=== PATIENT | female | born 1955 | race Caucasian/White ===

== ENCOUNTER 2017-03-08 12:28 | Emergency (ER) | payer OTHER ==
[2017-03-08 13:16] VITALS: BP 103/54
--- NOTE | 2017-03-08 13:26 | UC ---
Lower Extremity/Ankle HPI - HPI Summary HPI Summary: complaint of left leg pain that worsened approx 2 months ago 6 months ago she fell of a ramp backwards and thats when she started having leg pain in 10/2016 PCP found a lump in her left groin- lump has resolved for the past 2 months the pain starts in upper thigh and radiates into her knee left knee pain for 2 months aching pain - worse at night because she sleeps on her left side and weight of right leg pressing on left leg increases pain pain is worse when she is ambulating nothing lessenes the pain never had folloup appt with Dr Santos - History of Current Complaint Chief Complaint: UCLowerExtremity Stated Complaint: LEFT LEG PAIN Time Seen by Provider: 03/08/17 13:15 Hx Obtained From: Patient - Allergies/Home Medications Allergies/Adverse Reactions: Allergies Allergy/AdvReac Type Severity Reaction Status Date / Time Aspirin [ASA] Allergy Intermediate GI Upset Verified 03/08/17 13:07 Ibuprofen [From Motrin] Allergy Intermediate GI Upset Verified 03/08/17 13:07 Sulfa Drugs Allergy Intermediate GI Upset Verified 03/08/17 13:07 Camphor [From Vicks Vaporub] Allergy "LUNGS Verified 03/08/17 13:07 TIGHTEN UP" Eucalyptus Oil Allergy "LUNGS Verified 03/08/17 13:07 [From Vicks Vaporub] TIGHTEN UP" Latex Allergy red and Verified 03/08/17 13:07 itchy Menthol [From Vicks Vaporub] Allergy "LUNGS Verified 03/08/17 13:07 TIGHTEN UP" adhesive tape Allergy Intermediate Rash Uncoded 03/08/17 13:07 Mints Allergy Coughing Uncoded 03/08/17 13:07 Home Medications: Home Medications Acetaminophen [Acetaminophen Extra Stren] 1,500 mg PO BEDTIME 03/08/17 [History Confirmed 03/08/17] Aspirin EC Low Dose* [Ecotrin EC Low Dose 81 MG*] 81 mg PO DAILY 03/08/17 [ History Confirmed 03/08/17] Pantoprazole TAB (NF) [Protonix TAB (NF)] 40 mg PO DAILY 03/08/17 [History Confirmed 03/08/17] metFORMIN* [Glucophage 850 MG TAB *] 850 mg PO 0800,1200,1700 03/08/17 [History Confirmed 03/08/17] PMH/Surg Hx/FS Hx/Imm Hx Previously Healthy: Yes Endocrine History Of: Reports: Diabetes Cardiovascular History Of: Reports: Cardiac Disorders - [place] 2012, Stents, Pacemaker, Hypertension, Pacemaker/ICD, Myocardial Infarction Respiratory History Of: Reports: Asthma Denies: COPD GI/ History Of: Reports: Kidney Stones Cancer History Of: Denies: Breast Cancer - Surgical History Surgical History: Yes Surgery Procedure, Year, and Place: X 3SHOCKWAVE LITHOTRIPSY- CMCCARDIAC STENTS- CMCOophorectomyCARDIAC STENTS AND PACEMAKER INSERTION, MAY 2013 - Family History Known Family History: Negative: Cardiac Disease, Hypertension, Diabetes - Social History Occupation: Disabled Lives: With Family Alcohol Use: None Substance Use Type: None Smoking Status (MU): Former Smoker Type: Cigarettes Amount Used/How Often: 1 PPD Length of Time of Smoking/Using Tobacco: 44 Years When Did the Patient Quit Smoking/Using Tobacco: 05/2013 Household Exposure Type: Cigarettes - Immunization History Most Recent Influenza Vaccination: 2011 Most Recent Tetanus Shot: unk Most Recent Pneumonia Vaccination: none Review of Systems Constitutional: Negative Skin: Negative Eyes: Negative ENT: Negative Respiratory: Negative Cardiovascular: Negative Gastrointestinal: Negative Genitourinary: Negative Motor: Negative Neurovascular: Negative Musculoskeletal: Other: - left leg pain Neurological: Negative Psychological: Negative All Other Systems Reviewed And Are Negative: Yes Physical Exam Triage Information Reviewed: Yes Appearance: No Pain Distress, Well-Nourished Vital Signs: Initial Vital Signs Temp 98.8 F 03/08/17 13:00 Pulse 70 03/08/17 13:00 Resp 16 03/08/17 13:00 BP 103/54 03/08/17 13:00 Pulse Ox 98 03/08/17 13:00 Vital Signs Reviewed: Yes Eyes: Positive: Conjunctiva Clear ENT: Positive: Pharynx normal, TMs normal Neck: Positive: No Lymphadenopathy Respiratory: Positive: Lungs clear, Normal breath sounds, No respiratory distress Cardiovascular: Positive: RRR, No Murmur, Pulses Normal, Brisk Capillary Refill Abdomen Description: Positive: Nontender, Soft Bowel Sounds: Positive: Present Musculoskeletal: Positive: Other: - LLE-knee- No bony deformities, inflammation , or tenderness in bony prominences or soft tissue. No bakers cyst. Full ROM ( extension/flexion). Limited internal and external rotation. Medial, lateral meniscus; anterior, posterior cruciate ligaments ,medial & lateral collateral ligaments intact as assessed with negative Anterior/Posterior Drawer signs, Lachmans, and McMurrays Tests. No effusion, bulge/balloon sign. left thigh - slight tenderness in adductor longus- no edema on left thigh Neurological: Positive: Alert Psychological Exam: Normal Skin Exam: Normal Lower Extremity Course/Dx - Course Course Of Treatment: exam completed. physcial exam reveals muscle tenderness in adductor longus. no edema in LLE- pulses 2 +. x-ray shows osteoarthritis with small effusion- will start NSAIDs refer to ortho and PCP followup - Differential Dx/Diagnosis Differential Diagnosis/HQI/PQRI: Contusion, Fracture (Closed), Sprain, Strain Provider Diagnoses: LLE muscle sprain, osteoarthritis left knee, small effusion left knee Discharge - Discharge Plan Condition: Stable Disposition: HOME Prescriptions: Naproxen Sodium [Naproxen Sodium 220 mg cap] 220 mg PO BID #20 cap Patient Education Materials: Osteoarthritis (ED), Musculoskeletal Pain (ED) Referrals: Rosa Peacock MD [Primary Care Provider] - Additional Instructions: Increase fluids and rest Take naproxen for pain, rest leg Please review your discharge instructions. If your symptoms do not improve please call your primary care provider or return to urgent care.
--- NOTE | 2017-03-08 14:00 | RAD ---
INDICATION: TECHNIQUE: 2 views of the left knee were obtained. FINDINGS: The bones are in normal alignment. No fracture is seen. There is a small joint effusion present. There is mild to moderate osteoarthritic change in the medial and patellofemoral compartments. IMPRESSION: 1. SMALL JOINT EFFUSION. 2. MILD TO MODERATE OSTEOARTHRITIC CHANGE.
--- NOTE | 2017-03-08 14:01 | RAD ---
INDICATION: Left femur pain. TECHNIQUE: 2 views of the left femur were obtained. FINDINGS: The bones are normal alignment. No fracture is seen. IMPRESSION: NO EVIDENCE FOR FRACTURE.
== END 2017-03-08 14:31 | disposition home or self-care (01) ==
LOC: UCCORT 12:28
DX: S83.92XA Sprain of unspecified site of left knee, initial encounter (principal); X58.XXXA Exposure to other specified factors, initial encounter; Y93.9 Activity, unspecified; Y92.9 Unspecified place or not applicable; M17.12 Unilateral primary osteoarthritis, left knee; M25.462 Effusion, left knee; E11.9 Type 2 diabetes mellitus without complications; Z79.84 Long term (current) use of oral hypoglycemic drugs; I25.2 Old myocardial infarction; I10 Essential (primary) hypertension; Z95.5 Presence of coronary angioplasty implant and graft; Z95.0 Presence of cardiac pacemaker; J45.909 Unspecified asthma, uncomplicated; Z87.442 Personal history of urinary calculi; Z88.6 Allergy status to analgesic agent; Z88.2 Allergy status to sulfonamides; Z87.891 Personal history of nicotine dependence
CPT/HCPCS: 99212; G0463

== ENCOUNTER 2017-09-18 14:47 | Emergency (ER) | payer OTHER ==
[2017-09-18 15:10] VITALS: BP 123/61
[2017-09-18] MEDS ORDERED: Sulfamethox/Trimethoprim DS 800/160* TAB PO ONE (15:35)
[2017-09-18] MEDS ORDERED: Cephalexin CAP* 500 MG PO ONE (15:38)
--- NOTE | 2017-09-18 15:48 | UC ---
Hand/Wrist HPI - HPI Summary HPI Summary: 62 yo female with right index pain/redness/swelling that started 3 days ago started near lateral nail bed no with fusiform swelling of finger extending to dorsum of hand no f/c she is a diabetic - History Of Current Complaint Chief Complaint: UCUpperExtremity Stated Complaint: FINGER INJURY Time Seen by Provider: 09/18/17 15:08 Hx Obtained From: Patient Onset/Duration: Gradual Onset, Lasting Days Severity Initially: Mild Severity Currently: Severe Pain Intensity: 8 - if she bumps it Character Of Pain: Throbbing Aggravating Factor(s): Movement Alleviating Factor(s): Rest Associated Signs And Symptoms: Positive: Swelling, Redness Related History: Dominant Hand Right - Allergies/Home Medications Allergies/Adverse Reactions: Allergies Allergy/AdvReac Type Severity Reaction Status Date / Time Aspirin [ASA] Allergy Intermediate GI Upset Verified 09/18/17 14:57 Ibuprofen [From Motrin] Allergy Intermediate GI Upset Verified 09/18/17 14:57 Sulfa Drugs Allergy Intermediate GI Upset Verified 09/18/17 14:57 Camphor [From Vicks Vaporub] Allergy "LUNGS Verified 09/18/17 14:57 TIGHTEN UP" Eucalyptus Oil Allergy "LUNGS Verified 09/18/17 14:57 [From Vicks Vaporub] TIGHTEN UP" Latex Allergy red and Verified 09/18/17 14:57 itchy Menthol [From Vicks Vaporub] Allergy "LUNGS Verified 09/18/17 14:57 TIGHTEN UP" adhesive tape Allergy Intermediate Rash Uncoded 09/18/17 14:57 Mints Allergy Coughing Uncoded 09/18/17 14:57 PMH/Surg Hx/FS Hx/Imm Hx Previously Healthy: Yes Endocrine History: Diabetes, Dyslipidemia Cardiovascular History: Cardiac Disease, Hypertension, Myocardial Infarction - Surgical History Surgical History: Yes Surgery Procedure, Year, and Place: X 3SHOCKWAVE LITHOTRIPSY- CMCCARDIAC STENTS- CMCOophorectomyCARDIAC STENTS AND PACEMAKER INSERTION, MAY 2013 - Family History Known Family History: Negative: Cardiac Disease, Hypertension, Diabetes - Social History Alcohol Use: None Substance Use Type: Prescribed Smoking Status (MU): Former Smoker Type: Cigarettes Amount Used/How Often: 1 PPD Length of Time of Smoking/Using Tobacco: 44 Years When Did the Patient Quit Smoking/Using Tobacco: 05/2013 Household Exposure Type: Cigarettes - Immunization History Most Recent Influenza Vaccination: 2011 Most Recent Tetanus Shot: unk Most Recent Pneumonia Vaccination: none Review of Systems Constitutional: Negative Skin: Negative Eyes: Negative ENT: Negative Respiratory: Negative Cardiovascular: Negative Gastrointestinal: Negative Genitourinary: Negative Motor: Negative Neurovascular: Negative Musculoskeletal: Negative Neurological: Negative Psychological: Negative Is Patient Immunocompromised?: No All Other Systems Reviewed And Are Negative: Yes Physical Exam Triage Information Reviewed: Yes Appearance: Well-Appearing, No Pain Distress, Well-Nourished Vital Signs: Initial Vital Signs Temp 98.1 F 09/18/17 14:53 Pulse 74 09/18/17 14:53 Resp 12 09/18/17 14:53 BP 123/61 09/18/17 14:53 Pulse Ox 99 09/18/17 14:53 Eyes: Positive: Conjunctiva Clear ENT: Negative: Nasal congestion, Nasal drainage, Trismus, Muffled voice, Hoarse voice Neck: Positive: Supple Respiratory: Positive: Lungs clear, Normal breath sounds, No respiratory distress, No accessory muscle use Cardiovascular: Positive: RRR, No Murmur Musculoskeletal: Positive: Other: - see image Neurological: Positive: Alert, Muscle Tone Normal Skin Exam: Other - see image Procedures - Procedure Summary Procedure Summary: I&D right index finger paronychia TO sterile prep incised with 18 gu needle leyla pus expresses culture obtained tolerated procedure well - Incision and Drainage Site: right index finger Instrument(s): Needle Hand/Wrist Course/Dx - Differential Dx/Diagnosis Provider Diagnoses: right index finger paronychia. right index finger cellulitis Discharge - Discharge Plan Condition: Stable Disposition: HOME Prescriptions: Cephalexin CAP* [Keflex CAP*] 500 mg PO QID #28 cap Sulfamethox/Trimethoprim DS* [Bactrim DS 800/160 TAB*] 1 tab PO BID #14 tab Patient Education Materials: Paronychia (ED), Cellulitis (ED) Referrals: Rosa Peacock MD [Primary Care Provider] - 3 Days Additional Instructions: to er for new or worsening symptoms if the bactrim DS upsets your stomach take with food a culture is pending we will try to eliminate one of the antibiotics once your culture results return Images Hands: 1 - red/swollen/parodawnaa
--- NOTE | 2017-09-18 21:55 | UC ---
Progress - Progress Note Progress Note: Received report of S. aureus positive sample on wound culture from today. MRSA negative. She was prescribed cephalexin and bactrim. Treatment is appropriate pending sensitivities.
--- NOTE | 2017-09-20 14:13 | UC ---
Progress - Progress Note Progress Note: sensitive to bactrim and cephalexin. no changes [facility] 09/20/17 [id number]
== END 2017-09-18 16:05 | disposition home or self-care (01) ==
LOC: UCEAST 14:47
DX: L03.011 Cellulitis of right finger (principal); B95.61 Methicillin susceptible Staphylococcus aureus infection as the cause of diseases classified elsewhere; E11.9 Type 2 diabetes mellitus without complications; E78.5 Hyperlipidemia, unspecified; I25.2 Old myocardial infarction; I10 Essential (primary) hypertension; Z95.5 Presence of coronary angioplasty implant and graft; Z95.0 Presence of cardiac pacemaker; Z88.2 Allergy status to sulfonamides; Z88.6 Allergy status to analgesic agent; Z91.040 Latex allergy status; Z87.891 Personal history of nicotine dependence
CPT/HCPCS: 10060; 87070; 87077; 87186; 87205; 87640; 87641; 99212; A9270-GY; G0463

== ENCOUNTER 2017-09-27 11:23 | Emergency (ER) | payer OTHER ==
--- OUTSIDE RECORDS SUMMARY | 2017-09-27 11:58 | XMS REPORT ---
:1955 External Reference #:[id number] Author Organization [facility] Address [address] [facility] [place] [address] Phone [phone] Care Team Providers Name Role Phone Rosa Peacock MD Care Team Information Supervisor Road Administrator Unavailable Payers Type Date Identification Numbers Payment Provider Subscriber Commercial Effective: Policy Number: [id number] [facility] Mila Delgado 2014 PayID: [id number] [place] [address] Problems Date Description Provider Status Onset: 08/07/2014 Myopia Rosa Peacock M.D. Active Onset: 08/07/2014 Atopic dermatitis Rosa Peacock M.D. Active Onset: 08/07/2014 Psoriasis Rosa Peacock M.D. Active Onset: 08/07/2014 Asthma without status asthmaticus Rosa Peacock M.D. Active Onset: 08/07/2014 Allergic rhinitis Rosa Peacock M.D. Active Onset: 08/07/2014 Benign essential hypertension Rosa Peacock M.D. Active Onset: 08/07/2014 Cardiac pacemaker in situ Rosa Peacock M.D. Active Onset: 08/07/2014 Sinus node dysfunction Rosa Peacock M.D. Active Onset: 08/07/2014 Chronic obstructive lung disease Rosa Peacock M.D. Active Onset: 08/07/2014 Indigestion Rosa Peacock M.D. Active Onset: 08/07/2014 Peptic reflux disease Rosa Peacock M.D. Active Onset: 08/07/2014 Low back pain Rosa Peacock M.D. Active Onset: 08/07/2014 Osteoarthritis Rosa Peacock M.D. Active Onset: 08/07/2014 Type II diabetes mellitus uncontrolled Rosa Peacock M.D. Active Onset: 08/07/2014 Mixed hyperlipidemia Rosa Peacock M.D. Active Onset: 08/07/2014 Old myocardial infarction Rosa Peacock M.D. Active Onset: 08/07/2014 Coronary arteriosclerosis Rosa Peacock M.D. Active Family History Date Family Member(s) Problem(s) Comments Father due to he passed when pt () was 18 months old Father Alcoholism Mother due to a tage 69 () Mother due to Diabetes () First Son mental disorders various d/t brain injury First Son 37 Second Son dyslexia Second Son 33 Second Son lazy eye Third Son strong mood swings Third Son 30 First Brother Age is Unknown First Brother Cancer First Brother due to Cancer () Second Brother due to passed () Second Brother Age is Unknown Second Brother due to Diabetes () Second Brother due to kidney failure () Third Brother due to passed as infant () - " blue baby" heart failure Third Brother Age is Unknown Fourth Brother Age is Unknown Fourth Brother Diabetes Fifth Brother Age is Unknown Fifth Brother Diabetes Social History Type Date Description Comments Marital Status Legal Status: ETOH Use Denies alcohol use Smoking Patient is a former smoker Daily Caffeine Consumes on average 2 cups of regular coffee per day Allergies, Adverse Reactions, Alerts Date Description Reaction Status Severity Comments 08/07/2014 Latex active 08/07/2014 Aspirin active 08/07/2014 Sulfa Antibiotics active 08/07/2014 Nuts active 08/07/2014 Vicksvapor Rub active 08/07/2014 Mornix active 06/03/2017 Lisinopril active 06/03/2017 Bandaids Urticaria active Medications Medication Date Status Form Strength Qnty SIG Indications Ordering Provider Sindhu Hx Tablets 750mg 10tabs 1 by L03.011 Ayush, 017 - mouth Ahmad M., every M.D. 017 day Loratadine Active Tablets 10mg 30tabs Take 1 J30.9 Ayush, 017 Tablet Ahmad M., By Mouth M.D. Every Day as Needed Glipizide Active Tablets 10mg 90tabs Take 1 E11.65 Ayush, 017 Tablet Ahmad M., By Mouth M.D. 3 Times A Day Tramadol HCL Active Tablets 50mg 90tabs 1 by M25.562 Ayush, 017 mouth Ahmad M., three M.D. times a day Naproxen Active Tablets 250mg 60tabs Take 1 Ayush, 017 Tablet Ahmad M., By Mouth M.D. Twice A Day Advair Diskus Active Aerosol 250-50mcg/D 60units inhale 1 Ayush, 015 ose puff by Ahmad M., mouth M.D. twice daily Atorvastatin 0 Active Tablets 20mg E78.2 Unknown Calcium 000 I25.10 I25.2 Furosemide Active Tablets 20mg Take 1 Tablet By Mouth I25.10 Unknown Every Day R60.0 Clopidogrel Bisulfate Active Tablets 75mg Take 1 Tablet By I25.2 Unknown Mouth Every Day I25.10 Proair HFA Active Aerosol 108(90Base) 2Mdi use 2 J45.909 Ayush, mcg/Act puffs one Ahmad M., to four M.D. times daily J44.9 Diovan Active Tablets 80mg Take 1 Tablet By Mouth I25.10 Unknown Every Day Nitrostat Active Tablets Sub 0.4mg Place 1 Tablet Under I25.10 Unknown The Tongue as Directed I25.2 Metformin HCL Active Tablets 850mg 90tabs take 1 E11.65 Ayush, tablet by Ahmad M., mouth 3 M.D. times a day Pantoprazole Active Tablets DR 40mg 30tabs take 1 Ayush, Sodium tablet by Rosa Tompkins., mouth M.D. every day Gabapentin Active Tablets 600mg 90tabs take 1 M54.5 Ayush, tablet by Ahmaregina M., mouth 3 M.D. times a day M15.9 Metoprolol Active Tablets ER 25mg 1 by I25.10 Unknown Succinate ER 24HR mouth every day Aspirin Adult Low Active Tablets DR 81mg 1 by Unknown Dose mouth every day Aldactone Active Tablets 25mg 1/2 tab Unknown qd Januvia 07/02/2017 - Hx Tablets 100mg Samples [address] [facility] [place], 07/13/2017 by mouth Joemaregina Tompkins., every M.D. day Clarithromycin 11/07/2014 - Hx Tablets 500mg 28tabs [address] [facility] [place], 11/17/2014 mouth Joemaregina Ruiz, twice a M.D. day Glipizide - Hx Tablets 10mg 250.02 Unknown 08/15/2014 Pantoprazole - Hx Tablets DR 40mg Take 1 Unknown Sodium 08/07/2014 Tablet By Mouth Every Day Metoprolol - Hx Tablets ER 50mg Take 1 I25.10 Unknown Succinate ER 06/03/2017 24HR Tablet By Mouth Every Day M25.562 Loratadine - Hx Tablets 10mg take 1 tablet 477.8 [facility] every M., M.D. day Valsartan - Hx Tablets 80mg 414.01 Rosemarie, 08/07/2014 MD Kendall 412 401.1 Meloxicam - Hx Tablets 7.5mg Take One Tablet Unknown 08/07/2014 By Mouth Daily Ranitidine HCL - Hx Tablets 300mg [place], 08/07/2014 MD Dimple Cephalexin - Hx Capsules 500mg Unknown 08/07/2014 Amiodarone HCL - Hx Tablets 200mg Take 1 Tablet Unknown 08/07/2014 By Mouth Twice A Day For 7 Days, Then Decrease To 1 Tabl Metformin HCL - Hx Tablets 1000mg Unknown 08/07/2014 [facility] [employer] [facility] - Hx Tablets 150mg [place], Maximum Strength 08/07/2014 MD Dimple [facility] Loratadine - Hx Tablets 10mg Take 1 Tablet Unknown 08/07/2014 By Mouth Every Day Losartan - Hx Tablets 25mg take 1 tablet AyushPatricia erazod Potassium 08/07/2014 by mouth every M., M.D. day [facility] [employer] [facility] - Hx Tablets 150mg [place], Maximum Strength 06/27/2015 MD Dimple Medications Administered in Office Medication Date Status Form Strength Qnty SIG Indications Ordering Provider Intradermal Administered Injection Roma Segundo 016 Juliano FOOD SCIENTIST Immunizations CPT Code Status Date Vaccine Lot # [id number] Given 08/03/2017 Flu Vaccine [id number] Given 08/13/2016 Pneumovax [id number] Given 08/09/2015 Flu Vaccine [id number] Given 08/07/2014 Flu Vaccine [id number] Vital Signs Date Vital Result Comment 09/25/2017 BP Systolic 120 mmHg BP Diastolic 68 mmHg Height 66 inches 5'6" Weight 193.00 lb BMI (Body Mass Index) 31.1 kg/m2 Heart Rate 71 /min Respiratory Rate 16 /min 09/07/2017 BP Systolic 122 mmHg BP Diastolic 66 mmHg Height 66 inches 5'6" Weight 197.00 lb BMI (Body Mass Index) 31.8 kg/m2 Heart Rate 78 /min Respiratory Rate 16 /min 08/03/2017 BP Systolic 130 mmHg BP Diastolic 68 mmHg Weight 197.00 lb Heart Rate 77 /min Respiratory Rate 16 /min 07/01/2017 BP Systolic 110 mmHg BP Diastolic 62 mmHg Height 66 inches 5'6" Weight 195.00 lb BMI (Body Mass Index) 31.5 kg/m2 Heart Rate 63 /min Respiratory Rate 16 /min 06/15/2017 BP Systolic 110 mmHg BP Diastolic 72 mmHg Height 66 inches 5'6" Weight 194.00 lb BMI (Body Mass Index) 31.3 kg/m2 Heart Rate 62 /min Respiratory Rate 18 /min 05/28/2017 BP Systolic 124 mmHg BP Diastolic 62 mmHg Height 66 inches 5'6" Weight 196.00 lb BMI (Body Mass Index) 31.6 kg/m2 Heart Rate 72 /min Respiratory Rate 16 /min 08/13/2016 BP Systolic 126 mmHg BP Diastolic 74 mmHg Height 66 inches 5'6" Weight 209.00 lb BMI (Body Mass Index) 33.7 kg/m2 Heart Rate 68 /min Respiratory Rate 18 /min 03/10/2016 BP Systolic 120 mmHg BP Diastolic 62 mmHg Height 66 inches 5'6" Weight 222.00 lb BMI (Body Mass Index) 35.8 kg/m2 Heart Rate 84 /min Respiratory Rate 18 /min 02/13/2016 BP Systolic 119 mmHg BP Diastolic 76 mmHg Height 66 inches 5'6" Weight 225.00 lb BMI (Body Mass Index) 36.3 kg/m2 Heart Rate 75 /min Respiratory Rate 18 /min 11/15/2015 BP Systolic 122 mmHg BP Diastolic 70 mmHg Height 66 inches 5'6" Weight 226.00 lb BMI (Body Mass Index) 36.5 kg/m2 Heart Rate 71 /min Body Temperature 96.1 F Respiratory Rate 18 /min 10/23/2015 BP Systolic 140 mmHg BP Diastolic 77 mmHg Height 66 inches 5'6" Weight 228.00 lb BMI (Body Mass Index) 36.8 kg/m2 Heart Rate 80 /min Respiratory Rate 18 /min 09/25/2015 BP Systolic 123 mmHg BP Diastolic 78 mmHg Height 66 inches 5'6" Weight 227.00 lb BMI (Body Mass Index) 36.6 kg/m2 Heart Rate 63 /min Body Temperature 97.0 F Respiratory Rate 18 /min 08/09/2015 BP Systolic 122 mmHg BP Diastolic 76 mmHg Height 66 inches 5'6" Weight 222.00 lb BMI (Body Mass Index) 35.8 kg/m2 Heart Rate 67 /min Respiratory Rate 18 /min 07/09/2015 BP Systolic 11 mmHg BP Diastolic 75 mmHg Height 66 inches 5'6" Weight 215.00 lb BMI (Body Mass Index) 34.7 kg/m2 Heart Rate 65 /min Respiratory Rate 16 /min 06/27/2015 BP Systolic 125 mmHg BP Diastolic 78 mmHg Height 66 inches 5'6" Weight 211.00 lb BMI (Body Mass Index) 34.1 kg/m2 Heart Rate 61 /min Respiratory Rate 15 /min 05/04/2015 BP Systolic 105 mmHg BP Diastolic 64 mmHg Height 66 inches 5'6" Weight 217.00 lb BMI (Body Mass Index) 35.0 kg/m2 Heart Rate 61 /min Respiratory Rate 16 /min 12/19/2014 BP Systolic 106 mmHg BP Diastolic 66 mmHg Height 66 inches 5'6" Weight 220.00 lb BMI (Body Mass Index) 35.5 kg/m2 Heart Rate 62 /min Respiratory Rate 15 /min 11/24/2014 BP Systolic 132 mmHg BP Diastolic 74 mmHg Height 66 inches 5'6" Weight 220.00 lb BMI (Body Mass Index) 35.5 kg/m2 Heart Rate 62 /min Respiratory Rate 15 /min 11/07/2014 BP Systolic 123 mmHg BP Diastolic 73 mmHg Height 66 inches 5'6" Weight 222.00 lb BMI (Body Mass Index) 35.8 kg/m2 Heart Rate 62 /min Body Temperature 97.4 F Respiratory Rate 15 /min 09/26/2014 BP Systolic 144 mmHg BP Diastolic 81 mmHg Height 66 inches 5'6" Weight 227.00 lb BMI (Body Mass Index) 36.6 kg/m2 Heart Rate 60 /min Respiratory Rate 18 /min 08/15/2014 BP Systolic 128 mmHg BP Diastolic 64 mmHg Height 66 inches 5'6" Weight 221.00 lb BMI (Body Mass Index) 35.7 kg/m2 Heart Rate 61 /min Respiratory Rate 18 /min 08/08/2014 BP Systolic 127 mmHg BP Diastolic 66 mmHg Height 66 inches 5'6" Weight 220.00 lb BMI (Body Mass Index) 35.5 kg/m2 Heart Rate 67 /min Respiratory Rate 18 /min 08/07/2014 BP Systolic 138 mmHg BP Diastolic 72 mmHg Height 66 inches 5'6" Weight 220.00 lb BMI (Body Mass Index) 35.5 kg/m2 Heart Rate 60 /min Body Temperature 96.4 F Respiratory Rate 18 /min Results Test Date Test Result H/L Range Note Laboratory test finding 09/18/2017 Wound SEE RESULT BELOW 1, 2 Culture/Sensi MRSA/S. aureus Ssti PCR SEE RESULT BELOW 1, 3 CBC Auto Diff 07/01/2017 White Blood Count 6.5 10^3/uL 3.5-10.8 Red Blood Count 4.87 10^6/uL 4.0-5.4 Hemoglobin 15.1 g/dL 12.0-16.0 Hematocrit 44 % 35-47 Mean Corpuscular Volume 90 fL 80-97 Mean Corpuscular Hemoglobin 31 pg 27-31 Mean Corpuscular HGB Conc 34 g/dL 31-36 Red Cell Distribution Width 13 % 10.5-15 Platelet Count 125 10^3/uL Low 150-450 Mean Platelet Volume 11 um3 High 7.4-10.4 Abs Neutrophils 4.0 10^3/uL 1.5-7.7 Abs Lymphocytes 1.9 10^3/uL 1.0-4.8 Abs Monocytes 0.4 10^3/uL 0-0.8 Abs Eosinophils 0.2 10^3/uL 0-0.6 Abs Basophils 0 10^3/uL 0-0.2 Abs Nucleated RBC 0 10^3/uL Granulocyte % 61.6 % 38-83 Lymphocyte % 29.0 % 25-47 Monocyte % 5.6 % 1-9 Eosinophil % 3.1 % 0-6 Basophil % 0.7 % 0-2 Nucleated Red Blood Cells % 0.1 Comp Metabolic Panel 07/01/2017 Sodium 136 mmol/L 133-145 Potassium 4.6 mmol/L 3.5-5.0 Chloride 99 mmol/L Low 101-111 Co2 Carbon Dioxide 29 mmol/L 22-32 Anion Gap 8 mmol/L 2-11 Glucose 207 mg/dL High 70-100 Blood Urea Nitrogen 26 mg/dL High 6-24 Creatinine 0.93 mg/dL 0.51-0.95 BUN/Creatinine Ratio 28.0 High 8-20 Calcium 9.5 mg/dL 8.6-10.3 Total Protein 6.6 g/dL 6.4-8.9 Albumin 4.1 g/dL 3.2-5.2 Globulin 2.5 g/dL 2-4 Albumin/Globulin Ratio 1.6 1-3 Total Bilirubin 0.80 mg/dL 0.2-1.0 Alkaline Phosphatase 82 U/L 34-104 Alt 6 U/L Low 7-52 Ast 12 U/L Low 13-39 Egfr Non- 61.5 >60 Egfr 79.1 >60 4 CKMB 07/01/2017 CKMB ng/mL 2.0 ng/mL 0.6-6.3 Lipid Profile (Trig/Chol/HDL) 07/01/2017 Triglycerides 153 mg/dL 5 Cholesterol 128 mg/dL 6 HDL Cholesterol 48.0 mg/dL 7 LDL Cholesterol 49 mg/dL 8 Laboratory test 07/01/2017 Hemoglobin A1c 10.0 % High Less than 6.0 9 finding (Glyco HGB) Urine Microalbumin 07/01/2017 Urine Creatinine 71.34 mg/dL Random Ur Microalbumin (mg/L) < 15.0 mg/L Urine Microalbumin/Creatinine TNP ug/mg <31 10 Laboratory test finding 07/01/2017 TSH (Thyroid Stim 2.83 mcIU/mL 0.34- 5.60 11 Horm) Iron & Iron Binding 07/01/2017 Iron 165 g/dL 50-212 Capacity Unsaturated Iron Binding 163 g/dL Total Iron Binding Capacity 328 g/dL 250-450 % Iron Saturation 50 % 15-55 Laboratory test finding 11/15/2015 Magnesium 1.5 mg/dL Low 1.9-2.7 TSH (Thyroid Stim Horm) 2.73 ?IU/mL 0.34-5.60 Free T4 (Free Thyroxine) 1.10 ng/mL 0.61-1.12 Urine Microalbumin Random 11/15/2015 Ur Microalbumin (mg/L) 10.0 mg/L Urine Creatinine 115.43 mg/dL Urine Microalbumin/Creatinine 8.6 ug/mg <31 Laboratory test finding 11/15/2015 Uric Acid 5.6 mg/dL 2.3-6.6 Hemoglobin A1c (Glyco HGB) 10.5 % High Less than 6.0 12 Vitamin D Total 25(Oh) 21.2 ng/mL Low 30-50 Lipid Profile (Trig/Chol/HDL) 11/15/2015 Triglycerides 114 mg/dL 13 Cholesterol 117 mg/dL 14 HDL Cholesterol 52.9 mg/dL 15 LDL Cholesterol 41 mg/dL 16 Laboratory test finding 11/15/2015 CRP High Sensitivity 7.73 mg/L 17 Comp Metabolic Panel 11/15/2015 Sodium 134 mmol/L 133-145 Potassium 4.3 mmol/L 3.5-5.0 Chloride 95 mmol/L Low 101-111 Co2 Carbon Dioxide 27 mmol/L 22-32 Anion Gap 12 mmol/L High 2-11 Glucose 307 mg/dL High 70-100 Blood Urea Nitrogen 19 mg/dL 6-24 Creatinine 0.95 mg/dL 0.51-0.95 BUN/Creatinine Ratio 20.0 8-20 Calcium 9.4 mg/dL 8.6-10.3 Total Protein 6.9 g/dL 6.4-8.9 Albumin 4.6 g/dL 3.2-5.2 Globulin 2.3 g/dL 2-4 Albumin/Globulin Ratio 2.0 1-3 Total Bilirubin 1.10 mg/dL High 0.2-1.0 Alkaline Phosphatase 89 U/L 34-104 Alt 10 U/L 7-52 Ast 19 U/L 13-39 Egfr Non- 60.4 >60 Egfr 77.7 >60 18 CBC Auto Diff 11/15/2015 White Blood Count 7.2 10^3/uL 3.5-10.8 Red Blood Count 5.01 10^6/uL 4.0-5.4 Hemoglobin 15.8 g/dL 12.0-16.0 Hematocrit 48 % High 35-47 Mean Corpuscular Volume 95 fL 80-97 Mean Corpuscular Hemoglobin 32 pg High 27-31 Mean Corpuscular HGB Conc 33 g/dL 31-36 Red Cell Distribution Width 14 % 10.5-15 Platelet Count 127 10^3/uL Low 150-450 Mean Platelet Volume 11 um3 High 7.4-10.4 Abs Neutrophils 5.3 10^3/uL 1.5-7.7 Abs Lymphocytes 1.4 10^3/uL 1.0-4.8 Abs Monocytes 0.4 10^3/uL 0-0.8 Abs Eosinophils 0.1 10^3/uL 0-0.6 Abs Basophils 0 10^3/uL 0-0.2 Abs Nucleated RBC 0.01 10^3/uL Granulocyte % 73.1 % 38-83 Lymphocyte % 19.5 % Low 25-47 Monocyte % 5.6 % 1-9 Eosinophil % 1.2 % 0-6 Basophil % 0.6 % 0-2 Nucleated Red Blood Cells % 0.1 Laboratory test finding 07/09/2015 Thyroid Stim Hormone 2.37 uIU/mL 0.36- 3.74 Free T4 1.11 ng/dL 0.76-1.46 Vitamin D,25-Hydroxy 22.8 ng/mL Low 30.0-100.0 19 Vitamin B12 And Folate 07/09/2015 Vitamin B12 867 pg/mL 193-986 Folic Acid 24.4 ng/mL High 3.1-17.5 20 Laboratory test finding 07/09/2015 Magnesium 1.9 mg/dL 1.8-2.4 LDL Cholesterol Profile 07/09/2015 Cholesterol 162 mg/dL < 200 21 Triglycerides 180 mg/dL < 150 22 HDL Cholesterol 63 mg/dL > 40 23 LDL-Cholesterol 63 mg/dL < 100 24 Glycohemoglobin A1c 07/09/2015 Glycohemoglobin (A1c) 12.1 % High 4.2-6.3 25 eAG 301 mg/dL Laboratory test finding 07/09/2015 C-Reactive 6.10 mg/L <3.0 Protein,Cardiac Comprehensive Metabolic 07/09/2015 Glucose 351 mg/dL High 74-106 Panel BUN 15 mg/dL 7-18 Creatinine 1.0 mg/dL 0.6-1.3 Glom Filtration Rate, Estimate >60 mL/min >60 If >60 mL/min >60 26 BUN/Creat 15.0 ratio Sodium 135 mmol/L Low 136-145 Potassium 4.9 mmol/L 3.5-5.1 Chloride 96 mmol/L Low 98-107 Carbon Dioxide 30 mmol/L 21-32 Anion Gap 9 mEq/L 8-16 Calcium 8.8 mg/dL 8.5-10.1 Total Protein 7.0 g/dL 6.4-8.2 Albumin 3.9 g/dL 3.4-5.0 Globulin 3.1 g/dL 1.9-4.3 Alb/Glob 1.3 ratio Bilirubin,Total 0.9 mg/dL 0.2-1.0 Sgot/Ast 7 U/L Low 15-37 27 SGPT/Alt 11 U/L Low 12-78 28 Alkaline Phosphatase 123 U/L High 45-117 CBC W/Automated Diff 07/09/2015 White Blood Count 5.4 K/uL 3.1-10.7 Red Blood Count 4.76 M/uL 3.90-5.40 Hemoglobin 15.1 gm/dL 11.6-15.8 Hematocrit 45.1 % 36.0-46.1 Mean Cell Volume 94.7 fl 80.9-99.0 Mean Corpuscular HGB 31.7 pg 25.9-32.7 Mean Corpuscular HGB Conc 33.5 g/dL 30.8-34.3 Platelet Count 119 K/uL Low 155-360 Red Cell Distri Width SD 48.0 fl High 3-47 Red Cell Distri Width %CV 14.3 % 11.7-14.4 Mean Platelet Volume 12.4 fL 8.9-12.4 Neut% 67.4 % 40.4-72.8 Lymph % 24.2 % 17.0-46.1 Wood % 6.3 % 4.3-13.2 Eo% 1.7 % 0.0-6.6 Bas% 0.4 % 0.0-1.1 Neut# 3.66 K/uL 1.0-7.0 Lymph # 1.31 K/uL Low 1.8-7.0 Wood # 0.34 K/uL 0.3-0.9 Eos # 0.09 K/uL 0.0-0.5 Baso # 0.02 K/uL 0.0-0.1 Laboratory test finding 06/27/2015 Cytology Pap See Note 29 Laboratory test finding 05/04/2015 Thyroid Stim Hormone 2.18 uIU/mL 0.36- 3.74 Magnesium 1.8 mg/dL 1.8-2.4 Microalbumin,Random Urine 05/04/2015 Microalbumin,Urine < 5.0 < 20.0 mg/L Laboratory test finding 05/04/2015 Vitamin D,25-Hydroxy 19.8 ng/mL Low 30.0-100.0 30 LDL Cholesterol Profile 05/04/2015 Cholesterol 139 mg/dL < 200 31 Triglycerides 139 mg/dL < 150 32 HDL Cholesterol 65 mg/dL > 40 33 LDL-Cholesterol 46 mg/dL < 100 34 Glycohemoglobin A1c 05/04/2015 Glycohemoglobin (A1c) 10.4 % High 4.2-6.3 35 eAG 252 mg/dL Laboratory test finding 05/04/2015 C-Reactive 5.10 mg/L <3.0 Protein,Cardiac Comprehensive Metabolic 05/04/2015 Glucose 258 mg/dL High 74-106 Panel BUN 19 mg/dL High 7-18 Creatinine 1.0 mg/dL 0.6-1.3 Glom Filtration Rate, Estimate >60 mL/min >60 If >60 mL/min >60 36 BUN/Creat 19.0 ratio Sodium 136 mmol/L 136-145 Potassium 4.4 mmol/L 3.5-5.1 Chloride 95 mmol/L Low 98-107 Carbon Dioxide 35 mmol/L High 21-32 Anion Gap 6 mEq/L Low 8-16 Calcium 9.1 mg/dL 8.5-10.1 Total Protein 7.4 g/dL 6.4-8.2 Albumin 4.4 g/dL 3.4-5.0 Globulin 3.0 g/dL 1.9-4.3 Alb/Glob 1.5 ratio Bilirubin,Total 0.7 mg/dL 0.2-1.0 Sgot/Ast 8 U/L Low 15-37 37 SGPT/Alt 13 U/L 12-78 Alkaline Phosphatase 114 U/L 45-117 CBC W/Automated Diff 05/04/2015 White Blood Count 7.2 K/uL 3.1-10.7 Red Blood Count 4.79 M/uL 3.90-5.40 Hemoglobin 15.4 gm/dL 11.6-15.8 Hematocrit 46.4 % High 36.0-46.1 Mean Cell Volume 96.9 fl 80.9-99.0 Mean Corpuscular HGB 32.2 pg 25.9-32.7 Mean Corpuscular HGB Conc 33.2 g/dL 30.8-34.3 Platelet Count 134 K/uL Low 155-360 Red Cell Distri Width SD 49.4 fl High 3-47 Red Cell Distri Width %CV 14.0 % 11.7-14.4 Mean Platelet Volume 12.6 fL High 8.9-12.4 Neut% 69.1 % 40.4-72.8 Lymph % 24.8 % 17.0-46.1 Wood % 4.9 % 4.3-13.2 Eo% 0.8 % 0.0-6.6 Bas% 0.4 % 0.0-1.1 Neut# 4.95 K/uL 1.0-7.0 Lymph # 1.78 K/uL Low 1.8-7.0 Wood # 0.35 K/uL 0.3-0.9 Eos # 0.06 K/uL 0.0-0.5 Baso # 0.03 K/uL 0.0-0.1 CBC W/Automated Diff 11/07/2014 White Blood Count 7.3 K/uL 3.1-10.7 Red Blood Count 5.28 M/uL 3.90-5.40 Hemoglobin 16.4 gm/dL High 11.6-15.8 Hematocrit 48.4 % High 36.0-46.1 Mean Cell Volume 91.7 fl 80.9-99.0 Mean Corpuscular HGB 31.1 pg 25.9-32.7 Mean Corpuscular HGB Conc 33.9 g/dL 30.8-34.3 Platelet Count 140 K/uL Low 155-360 Red Cell Distri Width SD 45.4 fl 3-47 Red Cell Distri Width %CV 13.6 % 11.7-14.4 Mean Platelet Volume 12.6 fL High 8.9-12.4 Neut% 72.3 % 40.4-72.8 Lymph % 20.4 % 17.0-46.1 Wood % 5.7 % 4.3-13.2 Eo% 1.2 % 0.0-6.6 Bas% 0.4 % 0.0-1.1 Neut# 5.24 K/uL 1.0-7.0 Lymph # 1.48 K/uL 0.8-3.4 Wood # 0.41 K/uL 0.3-0.9 Eos # 0.09 K/uL 0.0-0.5 Baso # 0.03 K/uL 0.0-0.1 Comprehensive Metabolic Panel 11/07/2014 Glucose 370 mg/dL High 74-106 BUN 15 mg/dL 7-18 Creatinine 1.0 mg/dL 0.6-1.3 Glom Filtration Rate, Estimate >60 mL/min >60 If >60 mL/min >60 38 BUN/Creat 15.0 ratio Sodium 134 mmol/L Low 136-145 Potassium 4.4 mmol/L 3.5-5.1 Chloride 97 mmol/L Low 98-107 Carbon Dioxide 29 mmol/L 21-32 Anion Gap 12 mEq/L 8-16 Calcium 9.0 mg/dL 8.5-10.1 Total Protein 7.3 g/dL 6.4-8.2 Albumin 4.1 g/dL 3.4-5.0 Globulin 3.2 g/dL 1.9-4.3 Alb/Glob 1.3 ratio Bilirubin,Total 0.8 mg/dL 0.2-1.0 Sgot/Ast 9 U/L Low 15-37 39 SGPT/Alt 12 U/L 12-78 Alkaline Phosphatase 134 U/L High 45-117 Laboratory test finding 11/07/2014 Sedimentation Rate 7 mm/hr 0-30 C-Reactive Protein,Cardiac 8.84 mg/L <3.0 LDL Cholesterol Profile 11/07/2014 Cholesterol 139 mg/dL < 200 40 Triglycerides 146 mg/dL < 150 41 HDL Cholesterol 56 mg/dL > 40 42 LDL-Cholesterol 54 mg/dL < 100 43 Glycohemoglobin A1c 11/07/2014 Glycohemoglobin (A1c) 10.1 % High 4.2-6.3 44 eAG 243 mg/dL Laboratory test finding 11/07/2014 TSH Reflex FT4 and/or 1.97 uIU/mL 0.36 -3.74 45 FT3 Microalbumin,Random Urine 11/07/2014 Microalbumin,Random See Note 46 Urine CBC W/Automated Diff 08/08/2014 White Blood Count 5.8 K/uL 3.1-10.7 Red Blood Count 4.77 M/uL 3.90-5.40 Hemoglobin 15.2 gm/dL 11.6-15.8 Hematocrit 44.9 % 36.0-46.1 Mean Cell Volume 94.1 fl 80.9-99.0 Mean Corpuscular HGB 31.9 pg 25.9-32.7 Mean Corpuscular HGB Conc 33.9 g/dL 30.8-34.3 Platelet Count 131 K/uL Low 155-360 Red Cell Distri Width SD 44.5 fl 3-47 Red Cell Distri Width %CV 13.3 % 11.7-14.4 Mean Platelet Volume 12.4 fL 8.9-12.4 Neut% 74.8 % High 40.4-72.8 Lymph % 18.4 % 17.0-46.1 Wood % 5.2 % 4.3-13.2 Eo% 1.4 % 0.0-6.6 Bas% 0.2 % 0.0-1.1 Neut# 4.30 K/uL 1.0-7.0 Lymph # 1.06 K/uL 0.8-3.4 Wood # 0.30 K/uL 0.3-0.9 Eos # 0.08 K/uL 0.0-0.5 Baso # 0.01 K/uL 0.0-0.1 Comprehensive Metabolic Panel 08/08/2014 Glucose 336 mg/dL High 74-106 BUN 19 mg/dL High 7-18 Creatinine 0.9 mg/dL 0.6-1.3 Glom Filtration Rate, Estimate >60 mL/min >60 If >60 mL/min >60 47 BUN/Creat 21.1 ratio Sodium 134 mmol/L Low 136-145 Potassium 4.3 mmol/L 3.5-5.1 Chloride 98 mmol/L 98-107 Carbon Dioxide 31 mmol/L 21-32 Anion Gap 9 mEq/L 8-16 Calcium 8.9 mg/dL 8.5-10.1 Total Protein 7.2 g/dL 6.4-8.2 Albumin 4.2 g/dL 3.4-5.0 Globulin 3.0 g/dL 1.9-4.3 Alb/Glob 1.4 ratio Bilirubin,Total 0.8 mg/dL 0.2-1.0 Sgot/Ast 13 U/L Low 15-37 SGPT/Alt 15 U/L 12-78 Alkaline Phosphatase 126 U/L High 45-117 Laboratory test finding 08/08/2014 C-Reactive Protein,Cardiac 13.00 mg/L <3.0 48 Sedimentation Rate 14 mm/hr 0-30 LDL Cholesterol Profile 08/08/2014 Cholesterol 145 mg/dL 49 Triglycerides 146 mg/dL 50 HDL Cholesterol 54 mg/dL 51 LDL-Cholesterol 62 mg/dL 52 Laboratory test finding 08/08/2014 Magnesium 1.6 mg/dL Low 1.8-2.4 Thyroid Stim Hormone 1.67 uIU/mL 0.36-3.74 Free T4 1.19 ng/dL 0.76-1.46 Microalbumin,Random Urine 08/08/2014 Microalbumin,Urine 12.4 mg/L < 20.0 Vitamin B12 And Folate 08/08/2014 Vitamin B12 502 pg/mL 200-900 Folic Acid 10.8 ng/mL 3.1-17.5 Laboratory test finding 08/08/2014 Uric Acid 3.5 mg/dL 2.6-6.0 Glycohemoglobin A1c 08/08/2014 Glycohemoglobin (A1c) 10.2 % High 4.2-6.3 53 eAG 246 mg/dL 1 Comment: esa [id number] SEE RESULT BELOW Name: MILA DELGADO : [address]: Kin Smiley MD Acct: [id number] Unit: [id number] AGE: 62 Location: [facility] Re09/18/17 SEX: F Status: DEP ER SPEC: [id number] TITA: 09/18/17-1538 [facility] DR: Kin Smiley MD REQ: [id number] RECD: 09/18/17 STATUS: RES OTHR DR: Rosa Peacock MD _ SOURCE: FINGER SPDESC:INDEX RHT ORDERED: Culture Stain COMMENTS: Comment: esa [id number] Procedure Result Reported Site Wound/Misc Gram Stain Preliminary 09/18/17- 2036 ML 3+ Neutrophils 2+ Epithelial Cells 3+ Gram Positive Cocci in Clusters, resembling Staph Wound/Misc Culture PENDING * ML - MAIN LAB ([facility]) . END OF REPORT * ML=Testing performed at Main Lab DEPARTMENT OF PATHOLOGY, [address] [place] [address] Chester Agosto M.D. Director [facility] # [id number] SEE RESULT BELOW Name: MILA DELGADO : [address]: Kin Smiley MD Acct: [id number] Unit: [id number] AGE: 62 Location: [facility] Re09/18/17 SEX: F Status: DEP ER SPEC: [id number] TITA: 09/18/17-9 [facility] [address]: Kin Smiley MD REQ: [id number] RECD: 09/18/17 STATUS: MITZY KATHLEEN DR: Rosa Peacock MD _ SOURCE: FINGER SPDESC:INDEX RHT ORDERED: MRSA/SA SSTI, Culture Stain COMMENTS: Verbal to [id number] by [id number] at 2147 on 09/18/17. Results read back accurately. Comment: paronychia [id number] Procedure Result Reported Site MRSA/S. aureus SSTI PCR Final 09/18/17- 2147 ML Organism 1 MRSA NEGATIVE Organism 2 S.AUREUS POSITIVE Wound/Misc Gram Stain Final 09/19/17- 0743 ML 3+ Neutrophils 2+ Epithelial Cells 2+ Gram Positive Cocci in Clusters, resembling Staph Wound/Misc Culture Final 09/20/17- 45 ML Organism 1 STAPHYLOCOCCUS AUREUS Quantity 3+ 1. STAPHYLOCOCCUS AUREUS M.I.C. RX --------- ------ Penicillin 0.06 S Clindamycin <=0.25 S Erythromycin <=0.25 S Gentamicin <=0.5 S Linezolid 2 S Nitrofurantoin <=16 S Oxacillin <=0.25 S CONTINUED ON NEXT PAGE * ML=Testing performed at Main Lab DEPARTMENT OF PATHOLOGY, [address] [place] [address] Chester Agosto M.D. Director [facility] # [id number] Patient: MILA DELGADO [id number] (Continued) Specimen: [id number] Collected: 09/18/17 Received: 09/18/17 (Continued) Procedure Result Reported Site Wound/Misc Culture Final (continued) 09/20/17844 1. STAPHYLOCOCCUS AUREUS (continued) M.I.C. RX --------- ------ * Quinupristin/Dalfopristin 0.5 S Rifampin <=0.5 S Tetracycline <=1 S Doxycycline - Deduced S * Minocycline - Deduced S Trimethoprim/Sulfamethoxazole <=10 S Vancomycin 1 S Imipenem-Deduced S * Ampicillin/Sulbactam-Deduced S Cefazolin-Deduced S * These antibiotics are not available in the [facility] Formulary Contact the Microbiology Department for any additional antibiotic reporting. * ML - MAIN LAB (PSC1) . END OF REPORT * ML=Testing performed at Main Lab DEPARTMENT OF PATHOLOGY, [address] [place] [address] Chester Agosto M.D. Director [facility] # [id number] 4 Because ethnic data is not always readily available, this report includes an eGFR for both -Americans and non- Americans. The National Kidney Disease Education Program (NKDEP) does not endorse the use of the MDRD equation for patients that are not between the ages of 18 and 70, are , have extremes of body size, muscle mass, or nutritional status, or are non- or non-. According to the National Kidney Foundation, irrespective of diagnosis, the stage of the disease is based on the level of kidney function: Stage Description GFR(mL/min/1.73 m(2)) 1 Kidney damage with normal or decreased GFR 90 2 Kidney damage with mild decrease in GFR 60-89 3 Moderate decrease in GFR 30-59 4 Severe decrease in GFR 15-29 5 Kidney failure <15 (or dialysis) 5 Desirable <150 Borderline high 150-199 High 200-499 Very High >500 6 Desirable <200 Borderline high 200-239 High >239 7 Low <40 Desirable: 40-60 High: >60 8 Desirable: <100 mg/dL Near Optimal: 100-129 mg/dL Borderline High: 130-159 mg/dL High: 160-189 mg/dL Very High: >189 mg/dL 9 Therapeutic target for the treatment of diabetes Mellitus patients is <7% HBA1C, and in selective patients <6.0%.Please refer to [place] [employer] Association Diabetic care guidelines for further information. 10 Unable to calculate due to low microalbumin 11 [id number] 12 Therapeutic target for the treatment of diabetes Mellitus patients is <7% HBA1C, and in selective patients <6.0%.Please refer to [place] [employer] Association Diabetic care guidelines for further information. 13 Desirable <150 Borderline high 150-199 High 200-499 Very High >500 14 Desirable <200 Borderline high 200-239 High >239 15 Low <40 Desirable: 40-60 High: >60 16 Desirable: <100 mg/dL Near Optimal: 100-129 mg/dL Borderline High: 130-159 mg/dL High: 160-189 mg/dL Very High: >189 mg/dL 17 Low risk: <1.00 Average risk: 1.00-3.00 High risk: >3.00 18 Because ethnic data is not always readily available, this report includes an eGFR for both -Americans and non- Americans. The National Kidney Disease Education Program (NKDEP) does not endorse the use of the MDRD equation for patients that are not between the ages of 18 and 70, are , have extremes of body size, muscle mass, or nutritional status, or are non- or non-. According to the National Kidney Foundation, irrespective of diagnosis, the stage of the disease is based on the level of kidney function: Stage Description GFR(mL/min/1.73 m(2)) 1 Kidney damage with normal or decreased GFR 90 2 Kidney damage with mild decrease in GFR 60-89 3 Moderate decrease in GFR 30-59 4 Severe decrease in GFR 15-29 5 Kidney failure <15 (or dialysis) 19 Vitamin D deficiency has been defined by the [place] of [employer] and an Endocrine Society practice guideline as a level of serum 25-OH vitamin D less than 20 ng/mL (1,2). The Endocrine Society went on to further define vitamin D insufficiency as a level between 21 and 29 ng/mL (2). 1. IOM ([place] of Medicine). 2010. Dietary reference intakes for calcium and D. [place]: The National Academies Press. 2. Vincent CHOWDHURY, Lissy NICKERSON, Derrek LOPEZ, et al. Evaluation, treatment, and prevention of vitamin D deficiency: an Endocrine Society clinical practice guideline. JCEM. 2010; 96(7):1911-30. Performed at: RN - [facility] [address] [id number] Body Shop Floorperson: Nidhi Maldonado MD, Phone: [phone] 20 Result confirmed by repeat analysis. 21 Reference Guidelines*: Desirable: ........... < 200 mg/dL Borderline High: ..... 200-239 mg/dL High: ................ >=240 mg/dL * The National Cholesterol Education Program (NCEP) 22 Reference Guidelines*: Normal: ............. < 150 mg/dL Borderline High: .... 150-199 mg/dL High: ............... 200-499 mg/dL Very High: .......... > 500 mg/dL * Source: National Cholesterol Education Program (NCEP) 23 Reference Guidelines*: Low HDL: ..... < 40 mg/dL Normal: ..... 40-60 mg/dL Desirable: ... > 60 mg/dL *The National Cholesterol Education Program(NCEP) 24 Reference Guidelines*: Optimal:........... <100 mg/dL Near Optimal....... 100-129 mg/dL Borderline High.... 130-159 mg/dL High............... 160-189 mg/dL Very High.......... >=190 mg/dL * Source: National Cholesterol Education Program (NCEP) 25 Elevated levels of HbA1c suggest the need for more aggressive treatment of glycemia. The [place] Diabetes Association recommends that a primary goal of therapy should be a HbA1c of <7% and that physicians should re-evaluate the treatment regimen in patients with HbA1c values consistently >8%. 26 Note: Persistent reduction for 3 months or more in an eGFR <60 mL/min/1.73 m2 defines CKD. Patients with eGFR values >/=60 mL/min/1.73 m2 may also have CKD if evidence of persistent proteinuria is present. The original MDRD equation for estimated GFR is not valid for patients less than 18 years of age. Additional information may be found at www.kdoqi.org. 27 Values below the stated reference ranges of AST and ALT can be seen in normal populations. Clinical correlation is suggested. 28 Values below the stated reference ranges of AST and ALT can be seen in normal populations. Clinical correlation is suggested. 29 Interpretation: NEGATIVE FOR INTRAEPITHELIAL LESION OR MALIGNANCY. Specimen Adequacy: SATISFACTORY FOR EVALUATION. [facility] [address] [place] [address], [address] [place] [address] CYTOLOGY REPORT Name: MILA DELGADO : 1955 (Age: 60) Sex: F Location: [facility] Rec. # [id number] Date Collected: 06/27/2015 Billing #: [id number] Date Received: 06/28/2015 Requisition # [id number] Physician(s): JULIANO COX Source of Specimen: VAGINAL THIN PREP Clinical Information: Date of Last Menstrual Period: 1988 Treatment History: Hysterectomy kyra Electronic Signature ORTIZ Rush (ASCP) Reported: 07/05/2015 Also seen by :ORTIZ Francis (ASCP) [facility] ICD-9 Code(s) V72.31 30 Vitamin D deficiency has been defined by the [place] of [employer] and an Endocrine Society practice guideline as a level of serum 25-OH vitamin D less than 20 ng/mL (1,2). The Endocrine Society went on to further define vitamin D insufficiency as a level between 21 and 29 ng/mL (2). 1. IOM ([place] of [employer]). 2010. Dietary reference intakes for calcium and D. [place]: The National Academies Press. 2. Lissy Nicolas [place], Derrek LOPEZ, et al. Evaluation, treatment, and prevention of vitamin D deficiency: an Endocrine Society clinical practice guideline. JCEM. 2011 Apr; 96(7):1911-30. Performed at: RN - [facility] [address] [id number] [employer] Floorperson: Nidhi Maldonado MD, Phone: [phone] 31 Reference Guidelines*: Desirable: ........... < 200 mg/dL Borderline High: ..... 200-239 mg/dL High: ................ >=240 mg/dL * The National Cholesterol Education Program (NCEP) 32 Reference Guidelines*: Normal: ............. < 150 mg/dL Borderline High: .... 150-199 mg/dL High: ............... 200-499 mg/dL Very High: .......... > 500 mg/dL * Source: National Cholesterol Education Program (NCEP) 33 Reference Guidelines*: Low HDL: ..... < 40 mg/dL Normal: ..... 40-60 mg/dL Desirable: ... > 60 mg/dL *The National Cholesterol Education Program(NCEP) 34 Reference Guidelines*: Optimal:........... <100 mg/dL Near Optimal....... 100-129 mg/dL Borderline High.... 130-159 mg/dL High............... 160-189 mg/dL Very High.......... >=190 mg/dL * Source: National Cholesterol Education Program (NCEP) 35 Elevated levels of HbA1c suggest the need for more aggressive treatment of glycemia. The [place] Diabetes Association recommends that a primary goal of therapy should be a HbA1c of <7% and that physicians should re-evaluate the treatment regimen in patients with HbA1c values consistently >8%. 36 Note: Persistent reduction for 3 months or more in an eGFR <60 mL/min/1.73 m2 defines CKD. Patients with eGFR values >/=60 mL/min/1.73 m2 may also have CKD if evidence of persistent proteinuria is present. The original MDRD equation for estimated GFR is not valid for patients less than 18 years of age. Additional information may be found at www.kdoqi.org. 37 Values below the stated reference ranges of AST and ALT can be seen in normal populations. Clinical correlation is suggested. 38 Note: Persistent reduction for 3 months or more in an eGFR <60 mL/min/1.73 m2 defines CKD. Patients with eGFR values >/=60 mL/min/1.73 m2 may also have CKD if evidence of persistent proteinuria is present. The original MDRD equation for estimated GFR is not valid for patients less than 18 years of age. Additional information may be found at www.kdoqi.org. 39 Values below the stated reference ranges of AST and ALT can be seen in normal populations. Clinical correlation is suggested. 40 Reference Guidelines*: Desirable: ........... < 200 mg/dL Borderline High: ..... 200-239 mg/dL High: ................ >=240 mg/dL * The National Cholesterol Education Program (NCEP) 41 Reference Guidelines*: Normal: ............. < 150 mg/dL Borderline High: .... 150-199 mg/dL High: ............... 200-499 mg/dL Very High: .......... > 500 mg/dL * Source: National Cholesterol Education Program (NCEP) 42 Reference Guidelines*: Low HDL: ..... < 40 mg/dL Normal: ..... 40-60 mg/dL Desirable: ... > 60 mg/dL *The National Cholesterol Education Program(NCEP) 43 Reference Guidelines*: Optimal:........... <100 mg/dL Near Optimal....... 100-129 mg/dL Borderline High.... 130-159 mg/dL High............... 160-189 mg/dL Very High.......... >=190 mg/dL * Source: National Cholesterol Education Program (NCEP) 44 Elevated levels of HbA1c suggest the need for more aggressive treatment of glycemia. The [place] Diabetes Association recommends that a primary goal of therapy should be a HbA1c of <7% and that physicians should re-evaluate the treatment regimen in patients with HbA1c values consistently >8%. 45 QUERY: Reflex add FT3? N QUERY: Reflex add FT4? Y 46 NO URINE SENT 47 Note: Persistent reduction for 3 months or more in an eGFR <60 mL/min/1.73 m2 defines CKD. Patients with eGFR values >/=60 mL/min/1.73 m2 may also have CKD if evidence of persistent proteinuria is present. The original MDRD equation for estimated GFR is not valid for patients less than 18 years of age. Additional information may be found at www.kdoqi.org. 48 Result confirmed by repeat analysis. 49 Reference Guidelines*: Desirable: ........... < 200 mg/dL Borderline High: ..... 200-239 mg/dL High: ................ >=240 mg/dL * The National Cholesterol Education Program (NCEP) 50 Reference Guidelines*: Normal: ............. < 150 mg/dL Borderline High: .... 150-199 mg/dL High: ............... 200-499 mg/dL Very High: .......... > 500 mg/dL * Source: National Cholesterol Education Program (NCEP) 51 Reference Guidelines*: Low HDL: ..... < 40 mg/dL Normal: ..... 40-60 mg/dL Desirable: ... > 60 mg/dL *The National Cholesterol Education Program(NCEP) 52 Reference Guidelines*: Optimal:........... <100 mg/dL Near Optimal....... 100-129 mg/dL Borderline High.... 130-159 mg/dL High............... 160-189 mg/dL Very High.......... >=190 mg/dL * Source: National Cholesterol Education Program (NCEP) 53 Elevated levels of HbA1c suggest the need for more aggressive treatment of glycemia. The [place] Diabetes Association recommends that a primary goal of therapy should be a HbA1c of <7% and that physicians should re-evaluate the treatment regimen in patients with HbA1c values consistently >8%. Procedures Date CPT Code Description Status 07/01/2017 48670 Visual Screening Test Completed 07/01/2017 08652 EKG Completed 07/01/2017 42292 Audiometry, Bekesy, Screening Completed 02/13/2016 84984 EKG Completed 11/15/2015 02831 Visual Screening Test Completed 11/15/2015 99288 EKG Completed 11/15/2015 68341 Audiometry, Bekesy, Screening Completed 11/07/2014 49220 Spirometry Completed 11/07/2014 39552 EKG Completed 11/07/2014 23367 Tympanometry Completed 08/07/2014 58394 Visual Screening Test Completed 08/07/2014 19046 EKG Completed 08/07/2014 77590 Audiometry, Bekesy, Screening Completed Encounters Type Date Location Provider CPT E/M Dx Office Visit 09/07/2017 2:00p [place] [facility] Juliano Segundo [facility] 912[address] I10 Z95.0 I25.10 E78.2 E11.65 Office Visit 08/03/2017 4:30p [place] [facility] Juliano Segundo [facility] 25712 I10 Z95.0 I25.10 E78.2 Z23 M25.562 Office Visit 07/01/2017 11:15a [place] [facility] Juliano Segundo [facility] 28211 I10 Z95.0 I25.10 E78.2 E11.65 K21.0 J30.1 Z00.01 Office Visit 06/15/2017 2:00p [facility] Juliano Segundo [facility] 05469 M25.562 M54.5 Office Visit 05/28/2017 2:00p [place] [facility] Juliano Segundo [facility] 85045 M25.562 I10 Z95.0 K21.0 M54.5 E11.65 Office Visit 08/13/2016 1:45p [place] [facility] Juliano Segundo [facility] 69669 J30.2 I10 Z95.0 K21.0 M54.5 E11.65 E78.2 Z23 Office Visit 03/10/2016 4:30p [place] [facility] Juliano Segundo [facility] 34046 Z11.1 Office Visit 02/13/2016 2:15p [facility] Rosa Peacock M.D. 32429 R07.9 R31.9 L20.9 J45.909 J30.2 I10 Z95.0 I49.5 J44.9 K30 K21.0 M54.5 M15.9 E11.65 E78.2 I25.2 I25.10 R07.89 M25.512 L40.9 H90.3 G56.02 Office Visit 11/15/2015 9:00a [facility] Rosa Peacock M.D. 11240 Z00.01 R31.9 L20.9 J45.909 Z68.36 J30.2 I10 Z95.0 I49.5 J44.9 K30 K21.0 M54.5 M15.9 E11.65 E78.2 I25.2 I25.10 R07.89 M25.512 L40.9 H90.3 Office Visit 10/23/2015 9:15a [facility] Rosa Peacock M.D. 87223 R31.9 L20.9 J45.909 J30.2 I10 Z95.0 I49.5 J44.9 K30 K21.0 M54.5 M15.9 E11.65 E78.2 I25.2 I25.10 R07.89 M25.512 L40.9 Office Visit 09/25/2015 9:15a [facility] Rosa Peacock M.D. 58326 R31.9 L20.9 J45.909 J30.2 I10 Z95.0 I49.5 J44.9 K30 K21.0 M54.5 M15.9 E11.65 E78.2 I25.2 I25.10 R07.89 M25.512 L40.9 Z12.39 Office Visit 08/09/2015 10:00a [facility] Rosa Peacock M.D. 81993 Z23 L20.9 J45.909 J30.2 I10 Z95.0 I49.5 J44.9 K30 K21.0 M54.5 M15.9 E11.65 E78.2 I25.2 I25.10 R07.89 M25.512 L40.9 Office Visit 07/09/2015 10:45a [facility] Rosa Peacock M.D. 65083 691.8 696.8 493.90 477.8 401.1 V45.01 427.81 496 536.8 530.11 724.2 715.90 250.02 272.2 412 414.01 786.59 719.41 Office Visit 06/27/2015 2:15p [place] [facility] Juliano Segundo [facility] 65924 V72.31 V76.10 V76.41 V76.2 Office Visit 05/04/2015 9:45a [facility] Rosa Peacock M.D. 57183 691.8 696.8 493.90 477.8 401.1 V45.01 427.81 496 536.8 530.11 724.2 715.90 250.02 272.2 412 414.01 786.59 719.41 V76.12 Office Visit 12/19/2014 4:15p [facility] Rosa Peacock M.D. 16299 691.8 696.8 493.90 477.8 401.1 V45.01 427.81 496 536.8 530.11 724.2 715.90 250.02 272.2 412 414.01 786.59 719.41 Office Visit 11/24/2014 4:15p [facility] Rosa Peacock M.D. 76418 466.0 461.8 382.9 478.19 786.2 786.05 691.8 696.8 493.90 477.8 401.1 V45.01 427.81 496 536.8 530.11 724.2 715.90 250.02 272.2 412 414.01 786.59 Office Visit 11/07/2014 9:00a [facility] Rosa Peacock M.D. 31894 466.0 461.8 382.9 478.19 786.2 786.05 691.8 696.8 493.90 477.8 401.1 V45.01 427.81 496 536.8 530.11 724.2 715.90 250.02 272.2 412 414.01 786.59 Office Visit 09/26/2014 4:00p [facility] Rosa Peacock M.D. 68991 786.59 414.01 412 272.2 250.02 715.90 724.2 530.11 536.8 496 427.81 V45.01 401.1 477.8 493.90 696.8 691.8 Office Visit 08/15/2014 9:45a [facility] Rosa Peacock M.D. 12698 786.59 414.01 412 272.2 250.02 715.90 724.2 530.11 536.8 496 427.81 V45.01 401.1 477.8 493.90 696.8 691.8 Office Visit 08/08/2014 10:30a [facility] Rosa Peacock M.D. 81713 786.59 414.01 412 272.2 250.02 715.90 724.2 530.11 536.8 496 427.81 V45.01 401.1 477.8 493.90 696.8 691.8 Office Visit 08/07/2014 10:45a [facility] Rosa Peacock M.D. 72582 786.59 414.01 412 272.2 250.02 715.90 724.2 V70.1 530.11 536.8 496 V85.35 427.81 V45.01 401.1 477.8 493.90 696.8 691.8 367.1 V70.0 V04.81 Plan of Care Future Appointment(s):09/29/2017 2:00 pm - Rosa Peacock M.D. 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:F/U WITH CARDIOLOGY CONTINUE WITH RX AND F/U LABE78.2 Mixed hyperlipidemiaComments:DIET REVIEWED CONTINUE DIETWT LOSSF/U LAB FBWI10 Essential (primary) hypertensionComments:CHECK BP TIW ( PRN)F/U LABDIET AND FLUID COUNSELING LOW SODIUM DIETWT LOSSF/U LABE11.65 Type 2 diabetes mellitus with hyperglycemiaComments:DIET REVIEWED CONTINUE DIETWT LOSSF/U LAB FS qAC AND HS PRN F/U FBWZ95.0 Presence of cardiac pacemakerComments:F/U WITH XVIHFRAGELV81.0 Gastro-esophageal reflux disease with esophagitisComments:AVOID CAFFEINE, ETOH AND SPICY FOODSTUMS OR MYLANTA PRN CALL WITH PROBLEMS OR YEHYKFVSR98.9 Atopic dermatitis, unspecifiedComments:SKIN CARE INSTRUCTIONS LOTION OR BABY OIL 2-3 APPLICATION PER DAYUSE MOISTURIZING SOAPAVOID PROLONGED WATER EXPOSUREAVOID USING HOT WATER IN ZENCZSV17.9 Allergic rhinitis, unspecifiedComments:INCREASE PO FLUID USE ANTIHISTAMINE PRN SECOND HAND SMOKING UZSBFPNFSM22.5 Low back painComments:EXERCISE/HEAT /MESSAGEAVOID HEAVY LIFTING WT LOSSTYLENOL OR MOTRIN PRNM25.569 Pain in unspecified kneeJ45.909 Unspecified asthma, uncomplicatedComments:MDI / NEBULIZER TX PRN AVOID EXPOSURE TO SMOKING OR XJDYZK51.5 Sick sinus syndromeComments:STABLE F/U WITH CTDKHSGJGCF90.9 Chronic obstructive pulmonary disease, unspecifiedComments:INCREASE PO FLUIDREST NEB OR MDI AND /OR [id number] Functional dyspepsiaComments:AVOID CAFFEINE, ETOH AND SPICY FOODSTUMS OR MYLANTA PRN CALL WITH PROBLEMS OR ROHFUVNLA63.9 Polyosteoarthritis, unspecifiedComments:EXERCISE/HEAT/ MESSAGETYLENOL OR MOTRIN PRNAVOID HEAVY LIFTINGWT LOSSI25.2 Old myocardial infarctionComments:F/U WITH CARDIOLOGY CONTINUE WITH RX AND F/U LABM25.512 Pain in left shoulderComments:EXERCISE/HEAT /MESSAGE AVOID HEAVY LIFTINGTYLENOL OR MOTRIN PRNL40.9 Psoriasis, unspecifiedComments:SKIN CARE INSTRUCTIONS LOTION OR BABY OIL 2-3 APPLICATION PER DAYUSE MOISTURIZING SOAPAVOID PROLONGED WATER EXPOSUREAVOID USING HOT WATER IN MBAPTYJ65.3 Sensorineural hearing loss, bilateralComments:USE HEARING AID OBSERVE F/U WITH ENT PRNG56.02 Carpal tunnel syndrome, left upper limbComments:WRIST SPLINTEXERCISE/HEAT/MESSAGE F/U WITH ORTHO PRNL03.011 Cellulitis of right fingerNew Medication:Levaquin 750 mgComments:CONTINUE WITH ABXM79.644 Pain in right finger(s)New Xrays:Hand, Min. 3 Views, RTComments:TYLENOL OR MOTRIN PRN EXERCISE/HEAT/MZNXFWVA74.0 Localized edemaComments:ELEVATE
--- OUTSIDE RECORDS SUMMARY | 2017-09-27 12:00 | XMS REPORT ---
:1955 External Reference #:[id number] Author Organization [facility] Address [address] [facility] [place] [address] Phone [phone] Care Team Providers Name Role Phone Rosa Peacock MD Care Team Information Corporate Travel Manager Unavailable Payers Type Date Identification Numbers Payment Provider Subscriber Commercial Effective: Policy Number: [id number] [facility] Mila Balderas 2014 PayID: [id number] [place] [address] Problems Date Description Provider Status Onset: 08/07/2014 [...] () Third Brother due to passed as () - " blue baby" heart failure [...] Form Strength Qnty SIG Indications Ordering Provider Glipizide Active Tablets 10mg 90tabs Take 1 [...] Ahmad M., mouth M.D. twice daily Atorvastatin Active Tablets 20mg E78.2 Unknown Calcium 000 [...] 30tabs take 1 Ayush, Sodium tablet by Ahmad M., mouth M.D. every day Gabapentin Active Tablets 600mg 90tabs take 1 M54.5 Ayush, tablet by Ahmad M., mouth 3 M.D. times a day M15.9 Metoprolol Active Tablets ER 25mg 1 by I25.10 Unknown Succinate ER 24HR mouth every day Aspirin Adult Low Active Tablets DR 81mg 1 by Unknown Dose mouth every day Aldactone Active Tablets 25mg 1/2 tab Unknown qd Januvia 07/02/2017 - Hx Tablets 100mg Samples 1 tabs Ayush, 07/13/2017 by mouth Rosa Ruiz, every M.D. day Clarithromycin 11/07/2014 - Hx Tablets 500mg 28tabs 1 tab by Ayush, 11/17/2014 mouth Rosa Ruiz, twice a M.D. day Glipizide - Hx Tablets 10mg 250.02 Unknown 08/15/2014 Pantoprazole - Hx Tablets DR 40mg Take 1 Unknown Sodium 08/07/2014 Tablet By Mouth Every Day Metoprolol - Hx Tablets ER 50mg Take 1 I25.10 Unknown Succinate ER 06/03/2017 24HR Tablet By Mouth Every Day M25.562 Loratadine - Hx Tablets 10mg take 1 tablet 477.8 Rosa Peacock 03/08/2015 by mouth every M., M.D. day [...] Hx Tablets 1000mg Unknown 08/07/2014 [facility] - Hx Tablets 150mg [place], Maximum Strength 08/07/2014 MD Dimple [facility] Loratadine - Hx Tablets 10mg Take 1 Tablet Unknown 08/07/2014 By Mouth Every Day Losartan - Hx Tablets 25mg take 1 tablet Rosa Peacock Potassium 08/07/2014 by mouth every M., M.D. day [facility] [employer] - Hx Tablets 150mg [place], Maximum Strength 06/27/2015 MD Dimple Medications Administered in Office Medication Date Status Form Strength Qnty SIG Indications Ordering Provider Intradermal Administered Injection Sanya Deyayony Sherman Varghese VAT CLEANER Immunizations CPT Code Status Date Vaccine Lot # [id number] Given 08/03/2017 Flu Vaccine [id number] Given 08/13/2016 Pneumovax [id number] Given 08/09/2015 Flu Vaccine [id number] Given 08/07/2014 Flu Vaccine [id number] Vital Signs Date Vital Result Comment 09/07/2017 BP Systolic 122 mmHg BP Diastolic [...] Test Date Test Result H/L Range Note CBC Auto Diff 07/01/2017 White Blood Count [...] Egfr Non- 61.5 >60 Egfr 79.1 >60 1 CKMB 07/01/2017 CKMB ng/mL 2.0 ng/mL 0.6-6.3 Lipid Profile (Trig/Chol/HDL) 07/01/2017 Triglycerides 153 mg/dL 2 Cholesterol 128 mg/dL 3 HDL Cholesterol 48.0 mg/dL 4 LDL Cholesterol 49 mg/dL 5 Laboratory test 07/01/2017 Hemoglobin A1c 10.0 % High Less than 6.0 6 finding (Glyco HGB) Urine Microalbumin 07/01/2017 Urine Creatinine 71.34 mg/dL Random Ur Microalbumin (mg/L) < 15.0 mg/L Urine Microalbumin/Creatinine TNP ug/mg <31 7 Laboratory test finding 07/01/2017 TSH (Thyroid Stim 2.83 mcIU/mL 0.34- 5.60 8 Horm) Iron & Iron Binding 07/01/2017 Iron [...] HGB) 10.5 % High Less than 6.0 9 Vitamin D Total 25(Oh) 21.2 ng/mL Low 30-50 Lipid Profile (Trig/Chol/HDL) 11/15/2015 Triglycerides 114 mg/dL 10 Cholesterol 117 mg/dL 11 HDL Cholesterol 52.9 mg/dL 12 LDL Cholesterol 41 mg/dL 13 Laboratory test finding 11/15/2015 CRP High Sensitivity 7.73 mg/L 14 Comp Metabolic Panel 11/15/2015 Sodium 134 mmol/L [...] Egfr Non- 60.4 >60 Egfr 77.7 >60 15 CBC Auto Diff 11/15/2015 White Blood Count [...] 0.76-1.46 Vitamin D,25-Hydroxy 22.8 ng/mL Low 30.0-100.0 16 Vitamin B12 And Folate 07/09/2015 Vitamin B12 867 pg/mL 193-986 Folic Acid 24.4 ng/mL High 3.1-17.5 17 Laboratory test finding 07/09/2015 Magnesium 1.9 mg/dL 1.8-2.4 LDL Cholesterol Profile 07/09/2015 Cholesterol 162 mg/dL < 200 18 Triglycerides 180 mg/dL < 150 19 HDL Cholesterol 63 mg/dL > 40 20 LDL-Cholesterol 63 mg/dL < 100 21 Glycohemoglobin A1c 07/09/2015 Glycohemoglobin (A1c) 12.1 % High 4.2-6.3 22 eAG 301 mg/dL Laboratory test finding 07/09/2015 C-Reactive 6.10 mg/L <3.0 Protein,Cardiac Comprehensive Metabolic 07/09/2015 Glucose 351 mg/dL High 74-106 Panel BUN 15 mg/dL 7-18 Creatinine 1.0 mg/dL 0.6-1.3 Glom Filtration Rate, Estimate >60 mL/min >60 If >60 mL/min >60 23 BUN/Creat 15.0 ratio Sodium 135 mmol/L Low 136-145 Potassium 4.9 mmol/L 3.5-5.1 Chloride 96 mmol/L Low 98-107 Carbon Dioxide 30 mmol/L 21-32 Anion Gap 9 mEq/L 8-16 Calcium 8.8 mg/dL 8.5-10.1 Total Protein 7.0 g/dL 6.4-8.2 Albumin 3.9 g/dL 3.4-5.0 Globulin 3.1 g/dL 1.9-4.3 Alb/Glob 1.3 ratio Bilirubin,Total 0.9 mg/dL 0.2-1.0 Sgot/Ast 7 U/L Low 15-37 24 SGPT/Alt 11 U/L Low 12-78 25 Alkaline Phosphatase 123 U/L High 45-117 CBC [...] % 40.4-72.8 Lymph % 24.2 % 17.0-46.1 Charles % 6.3 % 4.3-13.2 Eo% 1.7 % 0.0-6.6 Bas% 0.4 % 0.0-1.1 Neut# 3.66 K/uL 1.0-7.0 Lymph # 1.31 K/uL Low 1.8-7.0 Charles # 0.34 K/uL 0.3-0.9 Eos # 0.09 K/uL 0.0-0.5 Baso # 0.02 K/uL 0.0-0.1 Laboratory test finding 06/27/2015 Cytology Pap See Note 26 Laboratory test finding 05/04/2015 Thyroid Stim Hormone 2.18 uIU/mL 0.36- 3.74 Magnesium 1.8 mg/dL 1.8-2.4 Microalbumin,Random Urine 05/04/2015 Microalbumin,Urine < 5.0 < 20.0 mg/L Laboratory test finding 05/04/2015 Vitamin D,25-Hydroxy 19.8 ng/mL Low 30.0-100.0 27 LDL Cholesterol Profile 05/04/2015 Cholesterol 139 mg/dL < 200 28 Triglycerides 139 mg/dL < 150 29 HDL Cholesterol 65 mg/dL > 40 30 LDL-Cholesterol 46 mg/dL < 100 31 Glycohemoglobin A1c 05/04/2015 Glycohemoglobin (A1c) 10.4 % High 4.2-6.3 32 eAG 252 mg/dL Laboratory test finding 05/04/2015 C-Reactive 5.10 mg/L <3.0 Protein,Cardiac Comprehensive Metabolic 05/04/2015 Glucose 258 mg/dL High 74-106 Panel BUN 19 mg/dL High 7-18 Creatinine 1.0 mg/dL 0.6-1.3 Glom Filtration Rate, Estimate >60 mL/min >60 If >60 mL/min >60 33 BUN/Creat 19.0 ratio Sodium 136 mmol/L 136-145 Potassium 4.4 mmol/L 3.5-5.1 Chloride 95 mmol/L Low 98-107 Carbon Dioxide 35 mmol/L High 21-32 Anion Gap 6 mEq/L Low 8-16 Calcium 9.1 mg/dL 8.5-10.1 Total Protein 7.4 g/dL 6.4-8.2 Albumin 4.4 g/dL 3.4-5.0 Globulin 3.0 g/dL 1.9-4.3 Alb/Glob 1.5 ratio Bilirubin,Total 0.7 mg/dL 0.2-1.0 Sgot/Ast 8 U/L Low 15-37 34 SGPT/Alt 13 U/L 12-78 Alkaline Phosphatase 114 [...] % 40.4-72.8 Lymph % 24.8 % 17.0-46.1 Charles % 4.9 % 4.3-13.2 Eo% 0.8 % 0.0-6.6 Bas% 0.4 % 0.0-1.1 Neut# 4.95 K/uL 1.0-7.0 Lymph # 1.78 K/uL Low 1.8-7.0 Charles # 0.35 K/uL 0.3-0.9 Eos # 0.06 [...] % 40.4-72.8 Lymph % 20.4 % 17.0-46.1 Charles % 5.7 % 4.3-13.2 Eo% 1.2 % 0.0-6.6 Bas% 0.4 % 0.0-1.1 Neut# 5.24 K/uL 1.0-7.0 Lymph # 1.48 K/uL 0.8-3.4 Charles # 0.41 K/uL 0.3-0.9 Eos # 0.09 K/uL 0.0-0.5 Baso # 0.03 K/uL 0.0-0.1 Comprehensive Metabolic Panel 11/07/2014 Glucose 370 mg/dL High 74-106 BUN 15 mg/dL 7-18 Creatinine 1.0 mg/dL 0.6-1.3 Glom Filtration Rate, Estimate >60 mL/min >60 If >60 mL/min >60 35 BUN/Creat 15.0 ratio Sodium 134 mmol/L Low 136-145 Potassium 4.4 mmol/L 3.5-5.1 Chloride 97 mmol/L Low 98-107 Carbon Dioxide 29 mmol/L 21-32 Anion Gap 12 mEq/L 8-16 Calcium 9.0 mg/dL 8.5-10.1 Total Protein 7.3 g/dL 6.4-8.2 Albumin 4.1 g/dL 3.4-5.0 Globulin 3.2 g/dL 1.9-4.3 Alb/Glob 1.3 ratio Bilirubin,Total 0.8 mg/dL 0.2-1.0 Sgot/Ast 9 U/L Low 15-37 36 SGPT/Alt 12 U/L 12-78 Alkaline Phosphatase 134 U/L High 45-117 Laboratory test finding 11/07/2014 Sedimentation Rate 7 mm/hr 0-30 C-Reactive Protein,Cardiac 8.84 mg/L <3.0 LDL Cholesterol Profile 11/07/2014 Cholesterol 139 mg/dL < 200 37 Triglycerides 146 mg/dL < 150 38 HDL Cholesterol 56 mg/dL > 40 39 LDL-Cholesterol 54 mg/dL < 100 40 Glycohemoglobin A1c 11/07/2014 Glycohemoglobin (A1c) 10.1 % High 4.2-6.3 41 eAG 243 mg/dL Laboratory test finding 11/07/2014 TSH Reflex FT4 and/or 1.97 uIU/mL 0.36 -3.74 42 FT3 Microalbumin,Random Urine 11/07/2014 Microalbumin,Random See Note 43 Urine CBC W/Automated Diff 08/08/2014 White Blood [...] High 40.4-72.8 Lymph % 18.4 % 17.0-46.1 Charles % 5.2 % 4.3-13.2 Eo% 1.4 % 0.0-6.6 Bas% 0.2 % 0.0-1.1 Neut# 4.30 K/uL 1.0-7.0 Lymph # 1.06 K/uL 0.8-3.4 Charles # 0.30 K/uL 0.3-0.9 Eos # 0.08 K/uL 0.0-0.5 Baso # 0.01 K/uL 0.0-0.1 Comprehensive Metabolic Panel 08/08/2014 Glucose 336 mg/dL High 74-106 BUN 19 mg/dL High 7-18 Creatinine 0.9 mg/dL 0.6-1.3 Glom Filtration Rate, Estimate >60 mL/min >60 If >60 mL/min >60 44 BUN/Creat 21.1 ratio Sodium 134 mmol/L Low [...] finding 08/08/2014 C-Reactive Protein,Cardiac 13.00 mg/L <3.0 45 Sedimentation Rate 14 mm/hr 0-30 LDL Cholesterol Profile 08/08/2014 Cholesterol 145 mg/dL 46 Triglycerides 146 mg/dL 47 HDL Cholesterol 54 mg/dL 48 LDL-Cholesterol 62 mg/dL 49 Laboratory test finding 08/08/2014 Magnesium 1.6 mg/dL Low 1.8-2.4 Thyroid Stim Hormone 1.67 uIU/mL 0.36-3.74 Free T4 1.19 ng/dL 0.76-1.46 Microalbumin,Random Urine 08/08/2014 Microalbumin,Urine 12.4 mg/L < 20.0 Vitamin B12 And Folate 08/08/2014 Vitamin B12 502 pg/mL 200-900 Folic Acid 10.8 ng/mL 3.1-17.5 Laboratory test finding 08/08/2014 Uric Acid 3.5 mg/dL 2.6-6.0 Glycohemoglobin A1c 08/08/2014 Glycohemoglobin (A1c) 10.2 % High 4.2-6.3 50 eAG 246 mg/dL 1 Because ethnic data is not always readily [...] 15-29 5 Kidney failure <15 (or dialysis) 2 Desirable <150 Borderline high 150-199 High 200-499 Very High >500 3 Desirable <200 Borderline high 200-239 High >239 4 Low <40 Desirable: 40-60 High: >60 5 Desirable: <100 mg/dL Near Optimal: 100-129 mg/dL Borderline High: 130-159 mg/dL High: 160-189 mg/dL Very High: >189 mg/dL 6 Therapeutic target for the treatment of diabetes Mellitus patients is <7% HBA1C, and in selective patients <6.0%.Please refer to [place] [employer] Association Diabetic care guidelines for further information. 7 Unable to calculate due to low microalbumin 8 [id number] Therapeutic target for the treatment of diabetes Mellitus patients is <7% HBA1C, and in selective patients <6.0%.Please refer to [place] [employer] Diabetic care guidelines for further information. 10 Desirable <150 Borderline high 150-199 High 200-499 Very High >500 11 Desirable <200 Borderline high 200-239 High >239 12 Low <40 Desirable: 40-60 High: >60 13 Desirable: <100 mg/dL Near Optimal: 100-129 mg/dL Borderline High: 130-159 mg/dL High: 160-189 mg/dL Very High: >189 mg/dL 14 Low risk: <1.00 Average risk: 1.00-3.00 High risk: >3.00 15 Because ethnic data is not always readily [...] 15-29 5 Kidney failure <15 (or dialysis) 16 Vitamin D deficiency has been defined by the [place] of [employer] and an Endocrine Society practice guideline as a level of serum 25-OH vitamin D less than 20 ng/mL (1,2). The Endocrine Society went on to further define vitamin D insufficiency as a level between 21 and 29 ng/mL (2). 1. IOM ([place] [employer]). 2010. Dietary reference intakes for calcium and D. [place]: The National Academies Press. 2. Vincent MF, Lissy NICKERSON, Derrek LOPEZ, et al. Evaluation, treatment, and prevention of vitamin D deficiency: an Endocrine Society clinical practice guideline. JCEM. 2010; 96(7):1911-30. Performed at: RN - [facility] [address] [id number] [employer]: Nidhi Maldonado MD, Phone: [phone] 17 Result confirmed by repeat analysis. 18 Reference Guidelines*: Desirable: ........... < 200 mg/dL Borderline High: ..... 200-239 mg/dL High: ................ >=240 mg/dL * The National Cholesterol Education Program (NCEP) 19 Reference Guidelines*: Normal: ............. < 150 mg/dL Borderline High: .... 150-199 mg/dL High: ............... 200-499 mg/dL Very High: .......... > 500 mg/dL * Source: National Cholesterol Education Program (NCEP) 20 Reference Guidelines*: Low HDL: ..... < 40 mg/dL Normal: ..... 40-60 mg/dL Desirable: ... > 60 mg/dL *The National Cholesterol Education Program(NCEP) 21 Reference Guidelines*: Optimal:........... <100 mg/dL Near Optimal....... 100-129 mg/dL Borderline High.... 130-159 mg/dL High............... 160-189 mg/dL Very High.......... >=190 mg/dL * Source: National Cholesterol Education Program (NCEP) 22 Elevated levels of HbA1c suggest the need for more aggressive treatment of glycemia. The [place] Diabetes [employer] recommends that a primary goal of therapy should be a HbA1c of <7% and that physicians should re-evaluate the treatment regimen in patients with HbA1c values consistently >8%. 23 Note: Persistent reduction for 3 months or more in an eGFR <60 mL/min/1.73 m2 defines CKD. Patients with eGFR values >/=60 mL/min/1.73 m2 may also have CKD if evidence of persistent proteinuria is present. The original MDRD equation for estimated GFR is not valid for patients less than 18 years of age. Additional information may be found at www.kdoqi.org. 24 Values below the stated reference ranges of AST and ALT can be seen in normal populations. Clinical correlation is suggested. 25 Values below the stated reference ranges of AST and ALT can be seen in normal populations. Clinical correlation is suggested. 26 Interpretation: NEGATIVE FOR INTRAEPITHELIAL LESION OR MALIGNANCY. Specimen Adequacy: SATISFACTORY FOR EVALUATION. Cytology Laboratory [address] [place] [address], [address] [place] [address] CYTOLOGY REPORT Name: MILA BALDERAS : 1955 (Age: 60) Sex: F Location: [facility]. # [id number] Date Collected: 06/27/2015 Billing #: [id number] Date Received: 06/28/2015 Requisition # [id number] Physician(s): JULIANO COX Source of Specimen: VAGINAL THIN PREP Clinical Information: Date of Last Menstrual Period: 1988 Treatment History: Hysterectomy kyra Electronic Signature ORTIZ Rush (ASCP) Reported: 07/05/2015 Also seen by :ORTIZ Francis (ASCP) [facility] ICD-9 Code(s) V72.31 27 Vitamin D deficiency has been defined by the [place] [employer] and an Endocrine Society practice guideline as a level of serum 25-OH vitamin D less than 20 ng/mL (1,2). The Endocrine Society went on to further define vitamin D insufficiency as a level between 21 and 29 ng/mL (2). 1. IOM ([place] [employer]). 2010. Dietary reference intakes for calcium and D. [place]: The National Academies Press. 2. Vincent MF, Lissy NICKERSON, Derrek LOPEZ, et al. Evaluation, treatment, and prevention of vitamin D deficiency: an Endocrine Society clinical practice guideline. JCEM. 2011 Apr; 96(7):1911-30. Performed at: RN - [facility] [address] [id number] [employer]: Nidhi Maldonado MD, Phone: [phone] 28 Reference Guidelines*: Desirable: ........... < 200 mg/dL Borderline High: ..... 200-239 mg/dL High: ................ >=240 mg/dL * The National Cholesterol Education Program (NCEP) 29 Reference Guidelines*: Normal: ............. < 150 mg/dL Borderline High: .... 150-199 mg/dL High: ............... 200-499 mg/dL Very High: .......... > 500 mg/dL * Source: National Cholesterol Education Program (NCEP) 30 Reference Guidelines*: Low HDL: ..... < 40 mg/dL Normal: ..... 40-60 mg/dL Desirable: ... > 60 mg/dL *The National Cholesterol Education Program(NCEP) 31 Reference Guidelines*: Optimal:........... <100 mg/dL Near Optimal....... 100-129 mg/dL Borderline High.... 130-159 mg/dL High............... 160-189 mg/dL Very High.......... >=190 mg/dL * Source: National Cholesterol Education Program (NCEP) 32 Elevated levels of HbA1c suggest the need for more aggressive treatment of glycemia. The [place] Diabetes Association recommends that a primary goal of therapy should be a HbA1c of <7% and that physicians should re-evaluate the treatment regimen in patients with HbA1c values consistently >8%. 33 Note: Persistent reduction for 3 months or more in an eGFR <60 mL/min/1.73 m2 defines CKD. Patients with eGFR values >/=60 mL/min/1.73 m2 may also have CKD if evidence of persistent proteinuria is present. The original MDRD equation for estimated GFR is not valid for patients less than 18 years of age. Additional information may be found at www.kdoqi.org. 34 Values below the stated reference ranges of AST and ALT can be seen in normal populations. Clinical correlation is suggested. 35 Note: Persistent reduction for 3 months or more in an eGFR <60 mL/min/1.73 m2 defines CKD. Patients with eGFR values >/=60 mL/min/1.73 m2 may also have CKD if evidence of persistent proteinuria is present. The original MDRD equation for estimated GFR is not valid for patients less than 18 years of age. Additional information may be found at www.kdoqi.org. 36 Values below the stated reference ranges of AST and ALT can be seen in normal populations. Clinical correlation is suggested. 37 Reference Guidelines*: Desirable: ........... < 200 mg/dL Borderline High: ..... 200-239 mg/dL High: ................ >=240 mg/dL * The National Cholesterol Education Program (NCEP) 38 Reference Guidelines*: Normal: ............. < 150 mg/dL Borderline High: .... 150-199 mg/dL High: ............... 200-499 mg/dL Very High: .......... > 500 mg/dL * Source: National Cholesterol Education Program (NCEP) 39 Reference Guidelines*: Low HDL: ..... < 40 mg/dL Normal: ..... 40-60 mg/dL Desirable: ... > 60 mg/dL *The National Cholesterol Education Program(NCEP) 40 Reference Guidelines*: Optimal:........... <100 mg/dL Near Optimal....... 100-129 mg/dL Borderline High.... 130-159 mg/dL High............... 160-189 mg/dL Very High.......... >=190 mg/dL * Source: National Cholesterol Education Program (NCEP) 41 Elevated levels of HbA1c suggest the need for more aggressive treatment of glycemia. The [place] Diabetes Association recommends that a primary goal of therapy should be a HbA1c of <7% and that physicians should re-evaluate the treatment regimen in patients with HbA1c values consistently >8%. 42 QUERY: Reflex add FT3? N QUERY: Reflex add FT4? Y 43 NO URINE SENT 44 Note: Persistent reduction for 3 months or more in an eGFR <60 mL/min/1.73 m2 defines CKD. Patients with eGFR values >/=60 mL/min/1.73 m2 may also have CKD if evidence of persistent proteinuria is present. The original MDRD equation for estimated GFR is not valid for patients less than 18 years of age. Additional information may be found at www.kdoqi.org. 45 Result confirmed by repeat analysis. 46 Reference Guidelines*: Desirable: ........... < 200 mg/dL Borderline High: ..... 200-239 mg/dL High: ................ >=240 mg/dL * The National Cholesterol Education Program (NCEP) 47 Reference Guidelines*: Normal: ............. < 150 mg/dL Borderline High: .... 150-199 mg/dL High: ............... 200-499 mg/dL Very High: .......... > 500 mg/dL * Source: National Cholesterol Education Program (NCEP) 48 Reference Guidelines*: Low HDL: ..... < 40 mg/dL Normal: ..... 40-60 mg/dL Desirable: ... > 60 mg/dL *The National Cholesterol Education Program(NCEP) 49 Reference Guidelines*: Optimal:........... <100 mg/dL Near Optimal....... 100-129 mg/dL Borderline High.... 130-159 mg/dL High............... 160-189 mg/dL Very High.......... >=190 mg/dL * Source: National Cholesterol Education Program (NCEP) 50 Elevated levels of HbA1c suggest the need for more aggressive treatment of glycemia. The [place] Diabetes Association recommends that a primary goal of therapy should be a HbA1c of <7% and that physicians should re-evaluate the treatment regimen in patients with HbA1c values consistently >8%. Procedures Date CPT Code Description Status 07/01/2017 73318 Visual Screening Test Completed 07/01/2017 07884 EKG Completed 07/01/2017 68631 Audiometry, Bekesy, Screening Completed 02/13/2016 35591 EKG Completed 11/15/2015 44838 Visual Screening Test Completed 11/15/2015 31249 EKG Completed 11/15/2015 26600 Audiometry, Bekesy, Screening Completed 11/07/2014 44071 Spirometry Completed 11/07/2014 43454 EKG Completed 11/07/2014 55702 Tympanometry Completed 08/07/2014 06155 Visual Screening Test Completed 08/07/2014 37302 EKG Completed 08/07/2014 22363 Audiometry, Bekesy, Screening Completed Encounters Type Date Location Provider CPT E/M Dx Office Visit 09/07/2017 2:00p [facility] Juliano Segundo [employer] 57957 I10 Z95.0 I25.10 E78.2 E11.65 Office Visit 08/03/2017 4:30p [facility] Juliano Segundo [employer] 38711 I10 Z95.0 I25.10 E78.2 Z23 M25.562 Office Visit 07/01/2017 11:15a [facility] Juliano Segundo [facility] 00999 I10 Z95.0 I25.10 E78.2 E11.65 K21.0 J30.1 Z00.01 Office Visit 06/15/2017 2:00p [facility] Juliano Segundo [facility] 83356 M25.562 M54.5 Office Visit 05/28/2017 2:00p [facility] Juliano Segundo [facility] 51141 M25.562 I10 Z95.0 K21.0 M54.5 E11.65 Office Visit 08/13/2016 1:45p [facility] Juliano Segundo [facility] 63970 J30.2 I10 Z95.0 K21.0 M54.5 E11.65 E78.2 Z23 Office Visit 03/10/2016 4:30p [facility] Juliano Segundo [facility] 71718 Z11.1 Office Visit 02/13/2016 2:15p [facility] Rosa Peacock M.D. 33320 R07.9 R31.9 L20.9 J45.909 J30.2 I10 Z95.0 I49.5 J44.9 K30 K21.0 M54.5 M15.9 E11.65 E78.2 I25.2 I25.10 R07.89 M25.512 L40.9 H90.3 G56.02 Office Visit 11/15/2015 9:00a [facility] Rosa Peacock M.D. 72854 Z00.01 R31.9 L20.9 J45.909 Z68.36 J30.2 I10 Z95.0 I49.5 J44.9 K30 K21.0 M54.5 M15.9 E11.65 E78.2 I25.2 I25.10 R07.89 M25.512 L40.9 H90.3 Office Visit 10/23/2015 9:15a [facility] Rosa Peacock M.D. 74423 R31.9 L20.9 J45.909 J30.2 I10 Z95.0 I49.5 J44.9 K30 K21.0 M54.5 M15.9 E11.65 E78.2 I25.2 I25.10 R07.89 M25.512 L40.9 Office Visit 09/25/2015 9:15a [facility] Rosa Peacock M.D. 52891 R31.9 L20.9 J45.909 J30.2 I10 Z95.0 I49.5 J44.9 K30 K21.0 M54.5 M15.9 E11.65 E78.2 I25.2 I25.10 R07.89 M25.512 L40.9 Z12.39 Office Visit 08/09/2015 10:00a [facility] Rosa Peacock M.D. 79093 Z23 L20.9 J45.909 J30.2 I10 Z95.0 I49.5 J44.9 K30 K21.0 M54.5 M15.9 E11.65 E78.2 I25.2 I25.10 R07.89 M25.512 L40.9 Office Visit 07/09/2015 10:45a [facility] Rosa Peacock M.D. 56199 691.8 696.8 493.90 477.8 401.1 V45.01 427.81 496 536.8 530.11 724.2 715.90 250.02 272.2 412 414.01 786.59 719.41 Office Visit 06/27/2015 2:15p [facility] Juliano Segundo [facility] 39547 V72.31 V76.10 V76.41 V76.2 Office Visit 05/04/2015 9:45a [facility] Rosa Peacock M.D. 09334 691.8 696.8 493.90 477.8 401.1 V45.01 427.81 496 536.8 530.11 724.2 715.90 250.02 272.2 412 414.01 786.59 719.41 V76.12 Office Visit 12/19/2014 4:15p [facility] Rosa Peacock M.D. 52261 691.8 696.8 493.90 477.8 401.1 V45.01 427.81 496 536.8 530.11 724.2 715.90 250.02 272.2 412 414.01 786.59 719.41 Office Visit 11/24/2014 4:15p [facility] Rosa Peacock M.D. 35626 466.0 461.8 382.9 478.19 786.2 786.05 691.8 696.8 493.90 477.8 401.1 V45.01 427.81 496 536.8 530.11 724.2 715.90 250.02 272.2 412 414.01 786.59 Office Visit 11/07/2014 9:00a [facility] Rosa Peacock M.D. 93350 466.0 461.8 382.9 478.19 786.2 786.05 691.8 696.8 493.90 477.8 401.1 V45.01 427.81 496 536.8 530.11 724.2 715.90 250.02 272.2 412 414.01 786.59 Office Visit 09/26/2014 4:00p [facility] Rosa Peacock M.D. 68846 786.59 414.01 412 272.2 250.02 715.90 724.2 530.11 536.8 496 427.81 V45.01 401.1 477.8 493.90 696.8 691.8 Office Visit 08/15/2014 9:45a [facility] Rosa Peacock M.D. 83078 786.59 414.01 412 272.2 250.02 715.90 724.2 530.11 536.8 496 427.81 V45.01 401.1 477.8 493.90 696.8 691.8 Office Visit 08/08/2014 10:30a [facility] Rosa Peacock M.D. 20602 786.59 414.01 412 272.2 250.02 715.90 724.2 530.11 536.8 496 427.81 V45.01 401.1 477.8 493.90 696.8 691.8 Office Visit 08/07/2014 10:45a [facility] Rosa Peacock M.D. 79987 786.59 414.01 412 272.2 250.02 715.90 724.2 V70.1 530.11 536.8 496 V85.35 427.81 V45.01 401.1 477.8 493.90 696.8 691.8 367.1 V70.0 V04.81 Plan of Care Future Appointment(s):10/07/2017 2:00 pm - Juliano Segundo VAT CLEANER at [facility] - Juliano Segundo [id number] Essential (primary) hypertensionComments:CHECK BP TIW COUNSELING ON DX AND PLANT OPERATOR HELPER CARE AND COMPLICATIONS LOW SODIUM DIET [facility] C[facility] F/UZ95.0 Presence of cardiac pacemakerComments:CONT WITH NDUVSNM87.10 Athscl heart disease of [place] coronary artery w/o ang pctrsComments:STABLEF/U WITH [id number] Mixed hyperlipidemiaComments: CONTINUE MEDICATION DIET COUNSELING WITH AINSRORHR11.65 Type 2 diabetes mellitus with hyperglycemiaComments:CONTINUE MEDICATION DIET COUNSELING WITH HANDOUTS LABS DRAWN
[2017-09-27] MEDS ORDERED: Levofloxacin 750 MG IVPREMIX(* 750 MG/150 ML BAG IVPB ONE (12:04)
[2017-09-27] MEDS ORDERED: Lidocaine 1% INJ* 10 MG/ML 30 ML SDV INJ ONE (12:43)
[2017-09-27 12:44] LABS: Hematocrit 42 % (35-47); Hemoglobin 14.5 g/dl (12.0-16.0); Mean Corpuscular HGB Conc 34 g/dl (31-36); Mean Corpuscular Hemoglobin 31 pg (27-31); Mean Corpuscular Volume 89 fL (80-97); Mean Platelet Volume 10 um3 (7.4-10.4); Red Blood Count 4.73 10^6/ul (4.0-5.4); Red Cell Distribution Width 13 % (10.5-15); White Blood Count 8.4 10^3/ul (3.5-10.8)
--- NOTE | 2017-09-27 12:47 | RAD ---
INDICATION: Right index finger infection. TECHNIQUE: 3 views of the right index finger were obtained. FINDINGS: On the lateral view of the finger there is evidence of soft tissue swelling overlying the dorsal aspect of the right index finger distal interphalangeal joint. The bones are normal alignment. Joint spaces appear maintained. No fracture is seen. IMPRESSION: IRREGULAR FINDINGS ARE CONSISTENT WITH SOFT TISSUE INFLAMMATORY CHANGE WITHOUT EVIDENCE OF UNDERLYING BONY INVOLVEMENT.
[2017-09-27 12:53] LABS: BUN/Creatinine Ratio 17.5 (8-20); Calcium 9.7 mg/dL (8.6-10.3); EGFR African American 55.7 (>60); EGFR Non-African American 43.3 (>60); Globulin 3.3 g/dL (2-4); Potassium 4.8 mmol/L (3.5-5.0); Total Bilirubin 0.5 mg/dL (0.2-1.0); Total Protein 7.3 g/dL (6.4-8.9)
[2017-09-27] MEDS ORDERED: NS 0.9% 1000 ML* 2,000 ML IV ONE (13:27)
--- NOTE | 2017-09-27 15:17 | ED ---
Skin Complaint - HPI Summary HPI Summary: 62F presents with right index finger swelling and redness for week and a half a go. She had a paronchyia which drained with needle a week ago and placed on keflex and bactrim for a week on 09/18. She states swelling increased over the extensor surface of her right index finger. She then saw her primary and was placed on levaquin and keflex and the swelling has continued to increase over the weekend. She has been having pus drainage from area. is diabetic. no history of MRSA. - History of Current Complaint Chief Complaint: EDExtremityUpper Time Seen by Provider: 09/27/17 11:35 Stated Complaint: RT FINGER SWELLING Pain Intensity: 9 - Allergy/Home Medications Allergies/Adverse Reactions: Allergies Allergy/AdvReac Type Severity Reaction Status Date / Time Aspirin [ASA] Allergy Intermediate GI Upset Verified 09/18/17 14:57 Ibuprofen [From Motrin] Allergy Intermediate GI Upset Verified 09/18/17 14:57 Sulfa Drugs Allergy Intermediate GI Upset Verified 09/18/17 14:57 Camphor [From Vicks Vaporub] Allergy "LUNGS Verified 09/18/17 14:57 TIGHTEN UP" Eucalyptus Oil Allergy "LUNGS Verified 09/18/17 14:57 [From Vicks Vaporub] TIGHTEN UP" Latex Allergy red and Verified 09/18/17 14:57 itchy Menthol [From Vicks Vaporub] Allergy "LUNGS Verified 09/18/17 14:57 TIGHTEN UP" adhesive tape Allergy Intermediate Rash Uncoded 09/18/17 14:57 Mints Allergy Coughing Uncoded 09/18/17 14:57 PMH/Surg Hx/FS Hx/Imm Hx Endocrine/Hematology History: Reports: Hx Diabetes Cardiovascular History: Reports: Hx Angina, Hx Coronary Artery Disease - 2 STENTS PLACED-05/2013, Hx Hypercholesterolemia, Hx Hypertension, Hx Myocardial Infarction, Hx Pacemaker/ICD, Other Cardiovascular Problems/Disorders - cardiac arrest this admission Respiratory History: Reports: Hx Asthma Denies: Hx Chronic Obstructive Pulmonary Disease (COPD) GI History: Reports: Hx Gastroesophageal Reflux Disease - ON MEDICATION FOR History: Reports: Hx Kidney Stones, Other Problems/Disorders - had stent placed by Dr Haynes Musculoskeletal History: Reports: Hx Arthritis Sensory History: Reports: Hx Cataracts - RIGHT, Hx Contacts or Glasses - GLASSES Denies: Hx Hearing Aid Opthamlomology History: Reports: Hx Cataracts - RIGHT, Hx Contacts or Glasses - GLASSES - Cancer History Hx Chemotherapy: No - Surgical History Surgery Procedure, Year, and Place: X 3SHOCKWAVE LITHOTRIPSY- CMCCARDIAC STENTS- CMCOophorectomyCARDIAC STENTS AND PACEMAKER INSERTION, MAY 2013 Hx Anesthesia Reactions: No Infectious Disease History: No Infectious Disease History: Denies: Traveled Outside the [place] in Last 30 Days - Family History Known Family History: Negative: Cardiac Disease, Hypertension, Diabetes - Social History Alcohol Use: None Substance Use Type: Reports: None Smoking Status (MU): Former Smoker Type: Cigarettes Amount Used/How Often: 1 PPD Length of Time of Smoking/Using Tobacco: 44 Years Review of Systems Negative: Fever Negative: Chest Pain Negative: Shortness Of Breath Positive: Edema - right index finger All Other Systems Reviewed And Are Negative: Yes Physical Exam Triage Information Reviewed: Yes Vital Signs On Initial Exam: Initial Vitals Temp Pulse Resp BP Pulse Ox 97.0 F 72 16 110/72 98 09/27/17 11:41 09/27/17 11:41 09/27/17 11:41 09/27/17 11:41 09/27/17 11:41 Vital Signs Reviewed: Yes Appearance: Positive: Well-Appearing Skin: Positive: Other - erythema over dorsum of right index finger Head/Face: Positive: Normal Head/Face Inspection Eyes: Positive: Normal, Conjunctiva Clear Respiratory/Lung Sounds: Positive: Clear to Auscultation, Breath Sounds Present Cardiovascular: Positive: Normal, RRR Musculoskeletal: Positive: Other - able to extend finger, unable to flex finger , nontender over flexor tendon. no palmar involvement. has popped blister type lesion near nailbed with pus drainage, capillary refill<2secs Neurological: Positive: Normal Psychiatric: Positive: Normal - Marlene Coma Scale Coma Scale Total: 15 Procedures - Incision and Drainage Site: right index finger Anesthesia: Digital Instrument(s): Scalpel Diagnostics - Vital Signs Vital Signs Temp Pulse Resp BP Pulse Ox 09/27/17 14:48 98.3 F 65 16 119/63 98 09/27/17 11:41 97.0 F 72 16 110/72 98 - Laboratory Lab Results: Lab Results 09/27/17 09/27/17 09/27/17 Range/Units 12:18 12:18 12:18 WBC 8.4 (3.5-10.8) 10^3/ul RBC 4.73 (4.0-5.4) 10^6/ul Hgb 14.5 (12.0-16.0) g/dl Hct 42 (35-47) % MCV 89 (80-97) fL MCH 31 (27-31) pg MCHC 34 (31-36) g/dl RDW 13 (10.5-15) % Plt Count 173 (150-450) 10^3/ul MPV 10 (7.4-10.4) um3 Neut % (Auto) 73.9 (38-83) % Lymph % (Auto) 19.3 L (25-47) % [place] % (Auto) 5.4 (1-9) % Eos % (Auto) 0.8 (0-6) % Baso % (Auto) 0.6 (0-2) % Absolute Neuts (auto) 6.2 (1.5-7.7) 10^3/ul Absolute Lymphs (auto) 1.6 (1.0-4.8) 10^3/ul Absolute Monos (auto) 0.5 (0-0.8) 10^3/ul Absolute Eos (auto) 0.1 (0-0.6) 10^3/ul Absolute Basos (auto) 0.1 (0-0.2) 10^3/ul Absolute Nucleated RBC 0.01 10^3/ul Nucleated RBC % 0.1 Sodium 132 L (133-145) mmol/L Potassium 4.8 (3.5-5.0) mmol/L Chloride 98 L (101-111) mmol/L Carbon Dioxide 23 (22-32) mmol/L Anion Gap 11 (2-11) mmol/L BUN 22 (6-24) mg/dL Creatinine 1.26 H (0.51-0.95) mg/dL Est GFR ( Amer) 55.7 (>60) Est GFR (Non-Af Amer) 43.3 (>60) BUN/Creatinine Ratio 17.5 (8-20) Glucose 220 H (70-100) mg/dL Lactic Acid 2.9 H* (0.5-2.0) mmol/L Calcium 9.7 (8.6-10.3) mg/dL Total Bilirubin 0.50 (0.2-1.0) mg/dL AST 11 L (13-39) U/L ALT 5 L (7-52) U/L Alkaline Phosphatase 98 (34-104) U/L Total Protein 7.3 (6.4-8.9) g/dL Albumin 4.0 (3.2-5.2) g/dL Globulin 3.3 (2-4) g/dL Albumin/Globulin Ratio 1.2 (1-3) Result Diagrams: 09/27/17 12:18 09/27/17 12:18 Lab Statement: Any lab studies that have been ordered have been reviewed, and results considered in the medical decision making process. Course/Dx - Course Course Of Treatment: 62F presents with right index finger swelling and redness for week and a half a go. She had a paronchyia which drained with needle a week ago and placed on keflex and bactrim for a week. She states swelling increased over the extensor surface of her right index finger. She then saw her primary and was placed on levaquin and keflex and the swelling has continued to increase over the weekend. She has been having pus drainage from area. on exam has erythema and edema from nailbed to PIP, has popped blister like area near nailbed with pus like drainage from area. patient able to extend fingers, put unable to flex fingers, pain with flexion, no palmar involvement. afebrile. wbc normal. lactic 2.9. gave dose of levaquin here. gave fluids. attempted I&D no drainage per dr du suggestion. discussed with dr ana laura rodríguez. dr rodríguez says that need to switch antibiotic to amoxicillin and clindamycin and follow up with ortho and suggested warm soaks 4 times a day. warned of signs to return to ED for. roni dodson and agrees with plan. - Differential Diagnoses - Skin Complaint Differential Diagnoses: Abscess, Cellulitis, Systemic Illness - Diagnoses Provider Diagnoses: Abscess of right index finger - Physician Notifications Discussed Care Of Patient With: dr rodríguez Time Discussed With Above Provider: 15:46 - discharge on augmentin and clindamycin, follow up in 2 days, warm soaks 4 times a day Discharge - Discharge Plan Condition: Good Disposition: HOME Prescriptions: Amoxicillin/Clavulanate TAB* [Augmentin TAB 875*] 875 mg PO BID #20 tab Clindamycin Cap(NF) [Clindamycin Cap 300 mg Cap(NF)] 300 mg PO TID #29 cap oxyCODONE/Acetamin 5/325 MG* [Percocet 5/325 TAB*] 1 tab PO Q6H PRN #8 tab MDD 4 PRN Reason: Pain Patient Education Materials: Abscess (ED) Referrals: Rosa Peacock MD [Primary Care Provider] - Jose Rodríguez MD [Medical Doctor] - Additional Instructions: Take clindamycin three times a day for 10 days, first dose given in ED Take augmentin twice a day for 10 days, first dose given in ED Warm soaks 4 times a day Take tyenlol every 6 hours, use narcotic for break through pain Follow up with primary or ortho in 2 days Return to ED if develop fever, area of redness spreads, or any new or worsening symptoms
[2017-09-27] MEDS ORDERED: Amoxicillin/Clavulanate TAB* 875 MG PO ONE (15:43)
[2017-09-27] MEDS ORDERED: Clindamycin CAP* 150 MG PO ONE ×2 (15:43→15:54)
[2017-09-27 16:09] VITALS: BP 108/62
--- NOTE | 2017-09-28 08:55 | PN ---
Progress Note - Progress Note Date of Service: 09/28/17 Note: Patient PCR positive for s aureus neg for MRSA. patient treated with augmentin and clindamycin. will wait for final sensitive.
--- NOTE | 2017-09-30 09:11 | ED ---
Progress - Progress Note Progress Note: Pt's wound cx reveals Staph aureus. Organism is sens to clindamycin which pt has been taking,however it is resistant to PCN. Pt was advised to take augmentin in addition to clindamycin. [facility] in an effort to notify pt she may stop taking the augmentin and complete clindamycin. Course/Dx - Course Course Of Treatment: 62F presents with right index finger swelling and redness for week and a half a go. She had a paronchyia which drained with needle a week ago and placed on keflex and bactrim for a week. She states swelling increased over the extensor surface of her right index finger. She then saw her primary and was placed on levaquin and keflex and the swelling has continued to increase over the weekend. She has been having pus drainage from area. on exam has erythema and edema from nailbed to PIP, has popped blister like area near nailbed with pus like drainage from area. patient able to extend fingers, put unable to flex fingers, pain with flexion, no palmar involvement. afebrile. wbc normal. lactic 2.9. gave dose of levaquin here. gave fluids. attempted I&D no drainage per dr du suggestion. discussed with dr du said edinson valdes. dr valdes says that need to switch antibiotic to amoxicillin and clindamycin and follow up with ortho and suggested warm soaks 4 times a day. warned of signs to return to ED for. roni dodson and agrees with plan. - Diagnoses Provider Diagnoses: Abscess of right index finger - Provider Notifications Time Discussed With Above Provider: 15:46 - discharge on augmentin and clindamycin, follow up in 2 days, warm soaks 4 times a day
== END 2017-09-27 16:09 | disposition home or self-care (01) ==
LOC: ED 11:23
DX: L02.511 Cutaneous abscess of right hand (principal); R60.9 Edema, unspecified
CPT/HCPCS: 10060; 36415; 73140; 80053; 83605; 85025; 87040; 87070; 87077; 87186; 87205; 87640; 87641; 99283; A9270-GY

== ENCOUNTER → 2017-10-02 08:56 | Day surgery (SDC) | payer OTHER ==
[~2017-10-02 08:56] MED LIST: Acetaminophen TAB* 325 MG PO PRN; DiMENhydriNATE IV* 50 MG/ML VIAL IV PUSH PRN; EPHEDrine (Pressors)* 50 MG/ML VIAL ONE; Famotidine IV* 10 MG/ML 2 ML (20 mg) ONE; KETAMINE HCL* 50 MG/ML 10 ML VIAL ONE; Levalbuterol 0.63MG/3ML NEB* UNIT OF USE INH PRN; Lidocaine 1% INJ* 10 MG/ML 30 ML SDV ONE; Lidocaine 2% PF * 5 ML VIAL ONE; Midazolam* 1 MG/ML 2 ML VIAL (2 MG) ONE; Ondansetron INJ* 2 MG/ML VIAL IV PRN; PROCHLORPERAZINE INJ 5 MG/ML 2 ML VIAL IV PRN; Propofol* 10 MG/ML 20 ML BTL IV PUSH ONE; ceFAZolin 2 GM PREMIX (*) 2 GM/50 ML BAG IVPB ONE; fentaNYL* 50 MCG/ML 2 ML VIAL (100 MCG VIAL) ONE
[2017-10-02 12:03] VITALS: BP 120/64
--- NOTE | 2017-10-02 23:20 | OP ---
DATE OF OPERATION: 10/02/17 [facility] DATE OF : 59 SURGEON: Joelle Perez MD TELEPHONE SOLICITOR SUPERVISOR: ESRGE Zapata ANESTHESIOLOGIST: Dr. Mann ANESTHESIA: Local MAC. PRE-OP DIAGNOSIS: Right index finger infection. POST-OP DIAGNOSIS: Right index finger infection. OPERATIVE PROCEDURE: I and D, right index finger. INDICATIONS: Mila is a 62-year-old female who developed an infection in the dorsal aspect of her right index finger. She has had some improvement with antibiotics and an I and D in the emergency room, but still has significant amount of purulence, so she presents for I and D of the right index finger. ESTIMATED BLOOD LOSS: Zero. TOURNIQUET TIME: About 15 minutes. DESCRIPTION OF PROCEDURE: The patient was brought to the operative room and was given a sedation anesthetic and a digital block with 10 cc of 1% plain lidocaine. The skin of her right hand and forearm was prepped and draped in the usual sterile fashion. The index finger was exsanguinated and a Tourni-Cot placed. The finger was debrided with a rongeur and then copiously irrigated with a liter of saline. Cultures were obtained prior to the debridement. The wound was dressed with Xeroform, 4x4, Webril, and Coban. The patient tolerated the procedure well and was brought to the recovery room in good condition. [id number]/CPS #: [id number] MTDD
== END | disposition home or self-care (01) ==
LOC: OREAST 08:56
PROVIDERS: ATTEND Orthopaedic Surgery
DX: L02.511 Cutaneous abscess of right hand (principal); A49.01 Methicillin susceptible Staphylococcus aureus infection, unspecified site; E13.42 Other specified diabetes mellitus with diabetic polyneuropathy; Z79.84 Long term (current) use of oral hypoglycemic drugs; I25.10 Atherosclerotic heart disease of native coronary artery without angina pectoris; I25.2 Old myocardial infarction; Z95.5 Presence of coronary angioplasty implant and graft; Z79.01 Long term (current) use of anticoagulants; Z87.891 Personal history of nicotine dependence; J45.909 Unspecified asthma, uncomplicated; R42 Dizziness and giddiness; Z95.810 Presence of automatic (implantable) cardiac defibrillator
CPT/HCPCS: 87070; 87073; 87077; 87186; 87205; J0690; J2250; J2704; J3010

== ENCOUNTER 2017-11-10 07:36 | Day surgery (SDC) | payer OTHER ==
[~2017-11-10 07:36] MED LIST changes: -Acetaminophen TAB* 325 MG PO PRN; +Buffered Lidocaine 0.9% SYRIN* 5 ML/SYR SYRINGE INTRADERM ONE; -EPHEDrine (Pressors)* 50 MG/ML VIAL ONE; +Famotidine IV* 10 MG/ML 2 ML (20 mg) IV ONE; +HYDROmorphone INJ* 1 MG/ML CARPUJECT SYRINGE IV PRN; -KETAMINE HCL* 50 MG/ML 10 ML VIAL ONE; -Levalbuterol 0.63MG/3ML NEB* UNIT OF USE INH PRN; -Lidocaine 1% INJ* 10 MG/ML 30 ML SDV ONE; -Lidocaine 2% PF * 5 ML VIAL ONE; -Midazolam* 1 MG/ML 2 ML VIAL (2 MG) ONE; +Naloxone* 0.4 MG/ML 1 ML VIAL IV PRN; -Ondansetron INJ* 2 MG/ML VIAL IV PRN; -PROCHLORPERAZINE INJ 5 MG/ML 2 ML VIAL IV PRN; -Propofol* 10 MG/ML 20 ML BTL IV PUSH ONE; +ceFAZolin 2 GM PREMIX (*) 0 GM/0 ML BAG IVPB ONE; -ceFAZolin 2 GM PREMIX (*) 2 GM/50 ML BAG IVPB ONE; -fentaNYL* 50 MCG/ML 2 ML VIAL (100 MCG VIAL) ONE; +oxyCODONE/Acetamin 5/325 MG* TAB PO PRN
[2017-11-10] MEDS ORDERED: Lidocaine 1% INJ* 10 MG/ML 30 ML SDV ONE (07:38)
[2017-11-10] MEDS ORDERED: ceFAZolin 2 GM PREMIX (*) 2 GM/50 ML BAG IVPB ONE (07:56)
[2017-11-10] MEDS ORDERED: Midazolam* 1 MG/ML 2 ML VIAL (2 MG) ONE (08:38)
[2017-11-10] MEDS ORDERED: fentaNYL* 50 MCG/ML 2 ML VIAL (100 MCG VIAL) ONE (08:38)
[2017-11-10] MEDS ORDERED: Dexamethasone IV* 4 MG/ML 1 ML (4 MG) ONE (08:39)
[2017-11-10] MEDS ORDERED: Ondansetron INJ* 2 MG/ML VIAL ONE (08:39)
[2017-11-10] MEDS ORDERED: DiMENhydriNATE IV* 50 MG/ML VIAL ONE (08:39)
[2017-11-10] MEDS ORDERED: Propofol* 10 MG/ML 20 ML BTL IV PUSH ONE (08:39)
[2017-11-10] MEDS ORDERED: Lidocaine 2% PF * 5 ML VIAL ONE (08:39)
[2017-11-10] MEDS ORDERED: HYDROcodone/ACETAMIN 5-325 MG* 1 TAB ONE (10:08)
[2017-11-10 10:21] VITALS: BP 115/63
--- NOTE | 2017-11-11 01:24 | OP ---
DATE OF OPERATION: 11/10/17 [facility] DATE OF : 59 SURGEON: Joelle Perez MD LINE SUPPLY: SERGE Zapata ANESTHESIA: Local MAC. PRE-OP DIAGNOSIS: Right index finger osteomyelitis. POST-OP DIAGNOSIS: Right index finger osteomyelitis. OPERATIVE PROCEDURE: I and D right index finger. ESTIMATED BLOOD LOSS: Zero. TOURNIQUET TIME: About 20 minutes. INDICATIONS FOR PROCEDURE: Mila is a 62-year-old female who has had an I and D of her right index finger, but has persistent drainage and x-ray evidence of osteomyelitis of the distal phalanx. She presents for I and D of the right index finger. DESCRIPTION OF PROCEDURE: The patient was brought to the operating room, was given a sedation anesthetic and a digital block of 10 cc of 1% plain lidocaine. The skin of her right hand and forearm was prepped and draped in the usual sterile fashion. The hand and forearm were exsanguinated and the tourniquet elevated to 250 mmHg. A small longitudinal incision was made on the dorsal aspect of the DIP joint and there was purulent drainage. This was cultured. Portions of the distal phalanx were also removed with rongeur and sent for culture as well. The wound was copiously irrigated with a liter of saline. The wound was loosely closed and then dressed with Xeroform, 4x4, Webril, and Coban. The patient tolerated the procedure well, was brought to the recovery room in good condition. [id number]/CPS #: [id number] MTDFay
== END 2017-11-10 10:16 | disposition home or self-care (01) ==
LOC: OREAST 07:36
PROVIDERS: ATTEND Orthopaedic Surgery
DX: M86.8X4 Other osteomyelitis, hand (principal); L02.511 Cutaneous abscess of right hand; B95.61 Methicillin susceptible Staphylococcus aureus infection as the cause of diseases classified elsewhere; E11.69 Type 2 diabetes mellitus with other specified complication; I10 Essential (primary) hypertension; I42.9 Cardiomyopathy, unspecified; I25.2 Old myocardial infarction; J45.909 Unspecified asthma, uncomplicated; I25.10 Atherosclerotic heart disease of native coronary artery without angina pectoris; Z87.891 Personal history of nicotine dependence; Z79.84 Long term (current) use of oral hypoglycemic drugs
CPT/HCPCS: 87070; 87073; 87077; 87186; 87205; J0690; J1100; J1240; J2250; J2405; J2704; J3010

== ENCOUNTER 2018-03-05 06:13 | Day surgery (SDC) | payer MEDICARE, MEDICAID ==
--- NOTE | 2018-02-24 20:47 | HP ---
PREOPERATIVE HISTORY AND PHYSICAL: DATE OF SURGERY/ADMISSION: 03/05/18 [facility] ATTENDING SURGEON: Joelle Perez MD * (DICTATED BY SERGE MAYERS) PROCEDURE: Right index finger distal interphalangeal joint fusion. LABORER FILTER PLANT: Dr. Garcia. CHIEF COMPLAINT: Instability, right index finger DIP joint. HISTORY OF PRESENT ILLNESS: This is a 62-year-old female with longstanding issues involving her right index DIP joint that started back in August 2017 when she developed paronychia. She had an I and D performed by Dr. Perez in September 2017, but unfortunately ended up developing infection and osteomyelitis and postinfection arthritis at the DIP joint. Through the course of infection of her finger, she was followed by Dr. Sawyer and he handled antibiotics. It was planned that as the osteomyelitis cleared that the patient would subsequently undergo a DIP joint fusion. The patient has various medical issues including chronic pain in knees and back, cardiac disease. She had a pacemaker implanted in 2013 and is on Plavix. She had a cardiac catheterization in 2012 and she also has diabetes mellitus type 2. She will remain on Plavix perioperatively. She will get clearance from her real estate utilization officer, Dr. Garcia, prior to proceeding with surgery. She has not had any recent chest pain. PAST MEDICAL HISTORY: 1. Diabetes mellitus, 2. 2. Hypertension. 3. Asthma. 4. History of nephrolithiasis. 5. History of myocardial infarction in 2012. 6. Coronary arteriosclerosis. PAST SURGICAL HISTORY: 1. Pacemaker implantation in 2013. 2. Cardiac catheterization in 2012. 3. Stent placement. 4. x3. 5. Hysterectomy. 6. I and D of right index finger in September 2017. CURRENT MEDICATIONS: 1. Advair Diskus 250/50 mcg/dose 1 puff p.o. b.i.d. 2. Aldactone 25 mg one half daily. 3. Aspirin 81 mg daily. 4. Atorvastatin calcium 20 mg daily. 5. Gabapentin 600 mg twice daily. 6. Irbesartan 150 mg daily. 7. Loratadine 10 mg daily. 8. Metformin HCL 850 mg b.i.d. 9. Metoprolol succinate ER 25 mg daily. 10. Naproxen 250 mg b.i.d. 11. Nitroglycerin 0.4 mg/HR 1 under tongue, may repeat 3 times p.r.n. 12. Pantoprazole sodium 40 mg daily. 13. Plavix 75 mg daily. 14. ProAir HFA 108 (90 base) mcg/ACT 2 puffs p.o. q.4 hours p.r.n. 15. Tramadol HCL 50 mg 1 tab 3 times a day p.r.n. 16. Zofran 4 mg q.8 hours p.r.n. nausea. ALLERGIES: ADHESIVES and LATEX and BANDAGES cause skin irritation; LISINOPRIL, reaction unknown; VICKS VAPORUB causes difficulty breathing. FAMILY HISTORY: Diabetes, heart disease, hypertension, stroke, cancer. SOCIAL HISTORY: The patient is employed as a home health aide. She is a former smoker, she quit in 2012. Prior to that, she smoked since age 14 a pack per day. She denies illicit drug use and does not drink alcohol. REVIEW OF SYSTEMS: General: Negative for fevers, chills, or night sweats. No known anesthesia problems. HEENT: Negative for headache, lightheadedness, or syncopal episodes. Integumentary: Negative for abrasions, lesions, or open wounds. Cardiothoracic: Negative for hypertension, chest pain, palpitations, or edema. Pulmonary: Positive for shortness of breath with exertion. Negative for chronic cough, COPD. GI: Negative for occasional nausea. Negative for vomiting, diarrhea, constipation, or GERD. : Negative for nocturia, urinary frequency, urgency, or history of UTIs. Musculoskeletal: Positive for current complaint. Neurological: Negative for paresthesias, numbness, history of seizure, stroke, or epilepsy. Endocrine: Positive for diabetes. Negative for thyroid issues. Hematologic: Negative for easy bruising , anemia, excessive bleeding, or history of DVT. Infectious Disease: Negative for history of MRSA, hepatitis C, HIV. PHYSICAL EXAMINATION GENERAL: Well-developed, well-nourished 62-year-old female, in no acute distress. VITAL SIGNS: Height 5 feet 6 inches, weight 198 pounds. Pulse rate 69, blood pressure 126/70. HEENT: Normocephalic, atraumatic. Pupils are equal, round, and reactive to light and accommodation. Extraocular motions are intact. Throat is clear. NECK: Supple. No palpable lymph nodes. PULMONARY: Lungs are clear to auscultation bilaterally. No wheezes, rales, or rhonchi. CARDIOVASCULAR: Regular rate and rhythm. S1, S2. No murmurs, rubs, or gallops. No edema. ABDOMEN: Positive bowel sounds. Soft, nontender. NEUROLOGICAL: Alert and oriented x3. Cranial nerves II through XII are intact. Sensation is intact to light touch. PERIPHERAL VASCULAR: 2+ radial and ulnar pulses. Negative [place] test. MUSCULOSKELETAL: On exam of the right index finger, there is a healed wound across the dorsum at the DIP joint. It is very tender to palpation. There is increased laxity and pain with [id number] movement. There is active motion at the joint, but difficulty with flexing both at the DIP and PIP joints. Neurovascular function is intact. IMAGING STUDIES: Most recent x-rays of the right index finger show a persistent deformity at the base of the distal phalanx. There is no sign of osteomyelitis at this time. 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 PLAN: The patient is scheduled to undergo a right index finger DIP joint fusion with Dr. Perez on 03/05/18. She will return to the office 10 to 14 days postoperatively for followup and suture removal. A prescription for [place] was e - scribed to the patient's pharmacy for postoperative pain management with instructions for her to not use the narcotic until after surgery. We will obtain clearance from her real estate utilization officer, Dr. Garcia, prior to proceeding with surgery. SERGE MAYERS [id number]/[facility] #: [id number] BRISSA
[~2018-03-05 06:13] MED LIST changes: -DiMENhydriNATE IV* 50 MG/ML VIAL IV PUSH PRN; -Famotidine IV* 10 MG/ML 2 ML (20 mg) IV ONE; -Famotidine IV* 10 MG/ML 2 ML (20 mg) ONE; -HYDROmorphone INJ* 1 MG/ML CARPUJECT SYRINGE IV PRN; -Naloxone* 0.4 MG/ML 1 ML VIAL IV PRN; -ceFAZolin 2 GM PREMIX (*) 0 GM/0 ML BAG IVPB ONE; -oxyCODONE/Acetamin 5/325 MG* TAB PO PRN
[2018-03-05] MEDS ORDERED: ceFAZolin 2 GM PREMIX (*) 2 GM/50 ML BAG IVPB ONE (06:24)
[2018-03-05] MEDS ORDERED: Propofol* 10 MG/ML 20 ML BTL IV PUSH ONE (07:11)
[2018-03-05] MEDS ORDERED: Midazolam* 1 MG/ML 2 ML VIAL (2 MG) ONE (07:11)
[2018-03-05] MEDS ORDERED: fentaNYL* 50 MCG/ML 2 ML VIAL (100 MCG VIAL) ONE (07:11)
[2018-03-05] MEDS ORDERED: Lidocaine 1% INJ* 10 MG/ML 30 ML SDV ONE (07:18)
[2018-03-05] MEDS ORDERED: Naloxone* 0.4 MG/ML 1 ML VIAL IV PRN (08:22)
[2018-03-05 08:35] VITALS: BP 111/62
--- NOTE | 2018-03-05 13:03 | RAD ---
INDICATION: Right index finger fusion COMPARISON: None FINDINGS: 45 seconds of fluoroscopy were provided for the orthopedic department. Fluoroscopic spot imaging of the right second digit were obtained for operative control . CPT II Codes: G9500 (fluoro time doc)
--- NOTE | 2018-03-06 01:09 | OP ---
DATE OF OPERATION: 03/05/18 - [facility] DATE OF : 59 SURGEON: Joelle Perez MD QUILT SEWER: SERGE Zapata ANESTHESIA: Local MAC. PRE-OP DIAGNOSIS: Status post osteomyelitis of the right index finger distal phalanx with postinfectious arthritis of the DIP joint. POST-OP DIAGNOSIS: Status post osteomyelitis of the right index finger distal phalanx with postinfectious arthritis of the DIP joint. OPERATIVE PROCEDURE: Right index finger distal interphalangeal joint fusion. ESTIMATED BLOOD LOSS: Zero. TOURNIQUET TIME: About half an hour. INDICATION FOR PROCEDURE: Mila is a 62-year-old female who developed an osteomyelitis of her right index finger distal phalanx after a wound on the dorsal aspect of her finger. She has had extensive treatment with IV antibiotics, presents now for DIP fusion as her DIP joint was destroyed by the infection in the presence of the open wound for so long. DESCRIPTION OF PROCEDURE: The patient was brought to the operating room, was given a sedation of anesthetic and a digital block with 10 cc of 1% plain lidocaine. The skin of her right hand and forearm was prepped and draped in the usual sterile fashion. The index finger was exsanguinated with a Tourni- Cot. An H-shaped incision was made over the DIP joint dorsal aspect. There was a tiny draining sinus tract and this was excised. The wound was copiously irrigated with saline. The joint was hyperflexed to expose both the ends of the phalanges and the DIP joint. The remaining cartilage and subchondral bone was removed. A guidewire from the micro Acutrak set was driven through the center of the middle phalanx and then removed and then entered through the center of the distal phalanx out the end of the finger and then back into the center of the middle phalanx. The position of the guidewire was checked on the C-arm in the AP and lateral views and found to be central in both views. I then used the starter drill for the micro Acutrak and then a 20-mm screw was placed over the guidewire while holding the bones opposed. The guidewire was removed. The finger joint was very stable. The position of the screw was checked on the C- arm in AP and lateral views and found to be centralized and the bones were opposed. The wound was copiously irrigated with saline. The skin edges were reapproximated with 4-0 nylon suture. The draining sinus tract had been removed and the skin edges reapproximated very easily. The wound was dressed with Xeroform, 4x4, Webril and an AlumaFoam splint. The patient tolerated the procedure well and brought to the recovery room in good condition. [id number]/[facility] #: [id number] MTDFay
== END 2018-03-05 08:32 | disposition home or self-care (01) ==
LOC: OREAST 06:13
PROVIDERS: ATTEND Orthopaedic Surgery
DX: M00.841 Arthritis due to other bacteria, right hand (principal); E11.9 Type 2 diabetes mellitus without complications; Z79.84 Long term (current) use of oral hypoglycemic drugs; Z79.01 Long term (current) use of anticoagulants; I10 Essential (primary) hypertension; J45.909 Unspecified asthma, uncomplicated; I25.2 Old myocardial infarction; I25.10 Atherosclerotic heart disease of native coronary artery without angina pectoris; Z95.0 Presence of cardiac pacemaker; Z95.5 Presence of coronary angioplasty implant and graft; Z87.891 Personal history of nicotine dependence
CPT/HCPCS: 76000; 88304; 88311; C1713; C1776; J0690; J2250; J2704; J3010

== ENCOUNTER 2022-07-13 14:44 | Observation (INO) ==
[2022-07-13 16:41] LABS: ABS Basophils 0.1 10^3/ul (0-0.2); ABS Eosinophils 0.2 10^3/ul (0-0.6); ABS Lymphocytes 1.5 10^3/ul (1.0-4.8); ABS Monocytes 0.4 10^3/ul (0-0.8); ABS Neutrophils 5.7 10^3/ul (1.5-7.7); Eosinophil % 2.2 %; Hematocrit 46 % (35-47); Hemoglobin 15.4 g/dL (12.0-16.0); Lymphocyte % 18.9 %; Mean Corpuscular HGB Conc 33 g/dL (31-36); Mean Corpuscular Hemoglobin 31 pg (27-31); Mean Corpuscular Volume 93 fL (80-97); Mean Platelet Volume 9.8 fL (7.4-10.4); Platelet Count 133 10^3/uL (150-450); Red Blood Count 4.94 10^6 /uL (3.70-4.87); Red Cell Distribution Width 14 % (10-15); White Blood Count 7.9 10^3/uL (3.5-10.8)
[2022-07-13 17:01] LABS: Albumin 4.2 g/dL (3.2-5.2); Albumin/Globulin Ratio 1.8 (1-3); Calcium 9.6 mg/dL (8.6-10.3); Globulin 2.4 g/dL (2-4); Magnesium 2.2 mg/dL (1.9-2.7); Potassium 4.5 mmol/L (3.5-5.0); Total Bilirubin 0.6 mg/dL (0.2-1.0); Total Protein 6.6 g/dL (6.4-8.9); eGFR CKD-EPI 31.7 (>60)
[2022-07-13 17:16] LABS: TSH Ultra Thyroid Stim Horm 2.3 mcIU/mL (0.34-5.60)
[2022-07-13] MEDS ORDERED: Iodixanol (CONTRAST) 320 MG/ML 100 ML SDV IV ONE (18:34)
[2022-07-13] MEDS ORDERED: Dextrose 50% Syringe 50 ml 25 GM/50 ML SYRINGE IV PUSH PRN (23:01)
[2022-07-13] MEDS ORDERED: Albuterol HFA INHALER 8 gm MDI INH PRN (23:14)
[2022-07-14 06:27] LABS: ABS Eosinophils 0.2 10^3/ul (0-0.6); ABS Lymphocytes 1.3 10^3/ul (1.0-4.8); ABS Monocytes 0.4 10^3/ul (0-0.8); ABS Neutrophils 4.3 10^3/ul (1.5-7.7); Eosinophil % 2.7 %; Hematocrit 41 % (35-47); Hemoglobin 13.4 g/dL (12.0-16.0); Lymphocyte % 20.5 %; Mean Corpuscular HGB Conc 33 g/dL (31-36); Mean Corpuscular Hemoglobin 31 pg (27-31); Mean Corpuscular Volume 94 fL (80-97); Mean Platelet Volume 9.6 fL (7.4-10.4); Platelet Count 105 10^3/uL (150-450); Red Blood Count 4.38 10^6 /uL (3.70-4.87); Red Cell Distribution Width 14 % (10-15); White Blood Count 6.2 10^3/uL (3.5-10.8)
[2022-07-14 07:14] LABS: Calcium 8.9 mg/dL (8.6-10.3); HDL Cholesterol 39.8 mg/dL; Potassium 4.4 mmol/L (3.5-5.0); eGFR CKD-EPI 27.2 (>60)
[2022-07-14] MEDS: Heparin 5000 UNITS/ML 1 mL VIAL SUBCUT SCH ×3 (07:57→21:09)
[2022-07-14] MEDS: Insulin GLARGINE 100 un/ml 10 ml VIAL SUBCUT SCH (07:57)
[2022-07-14] MEDS ORDERED: Perflutren Lipid Microsphere 3 ML VIAL ONE (08:58)
[2022-07-14 13:08] LABS: Folate 5.91 ng/mL (5.90-24.80)
[2022-07-14] MEDS ORDERED: Dextrose 50% Syringe 50 ml 25 GM/50 ML SYRINGE IV PUSH PRN (21:20)
[2022-07-15 05:24] LABS: ABS Eosinophils 0.2 10^3/ul (0-0.6); ABS Lymphocytes 1.6 10^3/ul (1.0-4.8); ABS Monocytes 0.4 10^3/ul (0-0.8); ABS Neutrophils 3.4 10^3/ul (1.5-7.7); Eosinophil % 3.2 %; Hematocrit 40 % (35-47); Hemoglobin 13.5 g/dL (12.0-16.0); Lymphocyte % 29.3 %; Mean Corpuscular HGB Conc 34 g/dL (31-36); Mean Corpuscular Hemoglobin 31 pg (27-31); Mean Corpuscular Volume 93 fL (80-97); Mean Platelet Volume 9.9 fL (7.4-10.4); Platelet Count 112 10^3/uL (150-450); Red Blood Count 4.33 10^6 /uL (3.70-4.87); Red Cell Distribution Width 14 % (10-15); White Blood Count 5.6 10^3/uL (3.5-10.8)
[2022-07-15 05:44] LABS: Calcium 9.1 mg/dL (8.6-10.3); Magnesium 2.2 mg/dL (1.9-2.7); Potassium 4.2 mmol/L (3.5-5.0); eGFR CKD-EPI 35.3 (>60)
[2022-07-15] MEDS: Heparin 5000 UNITS/ML 1 mL VIAL SUBCUT SCH (09:29)
[2022-07-15] MEDS: Insulin GLARGINE 100 un/ml 10 ml VIAL SUBCUT SCH (09:30)
[2022-07-15 10:53] VITALS: BP 128/56
== END 2022-07-15 13:27 | disposition home or self-care (01) ==
LOC: ED 14:44 → EDHOLD 14:44 → SUATTDRO 22:19 → MEDTELE 07-14 03:47
PROVIDERS: ADMIT Internal Medicine; ATTEND Internal Medicine

== ENCOUNTER 2024-05-28 13:20 | Inpatient (IN) ==
[2024-05-28] MEDS: Ondansetron 4 mg VIAL 2 MG/ML 2 ml VIAL IV ONE (14:08)
[2024-05-28] MEDS: Acetaminophen IV 1 GM/100ML 1,000 MG/100 ML BAG IV ONE (14:08)
[2024-05-28] MEDS: NS 0.9% 1000 ml BAG 1,000 ML IV ONE ×2 (14:08→16:22)
[2024-05-28 14:27] LABS: ABS Basophils 0.1 10^3/uL (0.0-0.1); ABS Monocytes 0.4 10^3/uL (0.0-0.9); ABS Nucleated RBC 0.04 10^3/ul; Eosinophil % 0.1 %; Hematocrit 51.5 % (35-45); Hemoglobin 17.4 g/dL (11.5-14.3); Lymphocyte % 8.3 %; Mean Corpuscular Hemoglobin 30.5 pg (27-33); Mean Corpuscular Hgb Conc 33.8 g/dL (31-36); Mean Corpuscular Volume 90.2 fL (80-97); Mean Platelet Volume 10.1 fL (7.5-11.2); Nucleated Red Blood Cells % 0.3 %/100WBC (0.0-0.8); Platelet Count 154 10^3/uL (150-450); Red Blood Count 5.71 10^6/uL (3.63-4.92); Red Cell Distribution Width 13.9 % (12-17); White Blood Count 12.5 10^3/uL (3.8-11.8)
[2024-05-28 15:23] LABS: Albumin 4.4 g/dL (3.2-5.2); Albumin/Globulin Ratio 1.6 (1-3); Calcium 9.9 mg/dL (8.6-10.3); Creatinine, Serum 1.66 mg/dL (0.51-0.95); Globulin 2.7 g/dL (2-4); Magnesium 1.9 mg/dL (1.9-2.7); Potassium 4.2 mmol/L (3.5-5.0); Total Bilirubin 1.6 mg/dL (0.2-1.0); Total Protein 7.1 g/dL (6.4-8.9); eGFR CKD-EPI 33.6 (>60)
[2024-05-28 16:37] LABS: Venous Bicarbonate HCO3 20.7 mmol/L (24-28)
[2024-05-28 16:51] LABS: Urine Appearance Clear; Urine Bacteria 2+ /HPF (Absent); Urine Bilirubin Negative (Negative); Urine Blood Negative (Negative); Urine Color Light-Yellow; Urine Glucose 4+ (>=1000 mg/dL) (Negative); Urine Ketones 1+ (Negative); Urine Nitrite Negative (Negative); Urine Protein 1+ (>=30 mg/dL) (Negative); Urine Red Blood Cell 1+(3-5/hpf) /HPF (0-Trace); Urine Squamous Epithelial Cell Present /HPF (Absent); Urine Urobilinogen 1+ (Negative); Urine White Blood Cell Trace(0-5/hpf) /HPF (0-Trace); Urine pH 5.5 (5.0-8.0)
[2024-05-28] MEDS: Lactated Ringers 1000 ml BAG 1,000 ML IV SCH (19:07)
[2024-05-28] MEDS: Famotidine IV 10 MG/ML 2 ml VIAL (20 mg) IV SLOW PU ONE (20:21)
[2024-05-28] MEDS ORDERED: Albuterol HFA INHALER 8 gm MDI INH PRN (21:00)
[2024-05-28] MEDS ORDERED: Acetaminophen IV 1 GM/100ML 1,000 MG/100 ML BAG IV PRN (22:46)
[2024-05-28] MEDS: HYDROmorphone 0.5 MG/0.5 ML SYRINGE IV SLOW PU PRN (23:20)
[2024-05-28] MEDS: Insulin GLARGINE 100 un/ml 10 ml VIAL SUBCUT SCH (23:54)
[2024-05-29 06:07] LABS: ABS Basophils 0.1 10^3/uL (0.0-0.1); ABS Eosinophils 0.1 10^3/uL (0.0-0.5); ABS Lymphocytes 1.9 10^3/uL (1.0-4.8); ABS Monocytes 0.5 10^3/uL (0.0-0.9); ABS Neutrophils 6.1 10^3/uL (1.5-7.6); Eosinophil % 1.1 %; Hematocrit 43.2 % (35-45); Hemoglobin 14.6 g/dL (11.5-14.3); Lymphocyte % 21.6 %; Mean Corpuscular Hemoglobin 30.9 pg (27-33); Mean Corpuscular Hgb Conc 33.8 g/dL (31-36); Mean Corpuscular Volume 91.4 fL (80-97); Mean Platelet Volume 9.7 fL (7.5-11.2); Platelet Count 111 10^3/uL (150-450); Red Blood Count 4.72 10^6/uL (3.63-4.92); Red Cell Distribution Width 13.7 % (12-17); White Blood Count 8.6 10^3/uL (3.8-11.8)
[2024-05-29 06:25] LABS: Calcium 8.5 mg/dL (8.6-10.3); Creatinine, Serum 1.28 mg/dL (0.51-0.95); Potassium 3.9 mmol/L (3.5-5.0); eGFR CKD-EPI 45.9 (>60)
[2024-05-29] MEDS: Lactated Ringers 1000 ml BAG 1,000 ML IV SCH (11:21)
[2024-05-29] MEDS: Pantoprazole VIAL 40 MG VIAL IV SCH (11:21)
[2024-05-29] MEDS: Acetaminophen IV 1 GM/100ML 1,000 MG/100 ML BAG IV PRN (22:30)
[2024-05-30 06:50] LABS: Calcium 8.6 mg/dL (8.6-10.3); Creatinine, Serum 1.25 mg/dL (0.51-0.95); Magnesium 1.8 mg/dL (1.9-2.7); Potassium 3.7 mmol/L (3.5-5.0); eGFR CKD-EPI 47.2 (>60)
[2024-05-30 07:58] LABS: Hematocrit 43.1 % (35-45); Hemoglobin 14.4 g/dL (11.5-14.3); Mean Corpuscular Hemoglobin 31.7 pg (27-33); Mean Corpuscular Hgb Conc 33.4 g/dL (31-36); Mean Corpuscular Volume 94.9 fL (80-97); Red Blood Count 4.54 10^6/uL (3.63-4.92); Red Cell Distribution Width 14.2 % (12-17)
[2024-05-30 08:00] LABS: ABS Eosinophils 0.2 10^3/uL (0.0-0.5); ABS Lymphocytes 1.4 10^3/uL (1.0-4.8); ABS Monocytes 0.4 10^3/uL (0.0-0.9); ABS Nucleated RBC 0.01 10^3/ul; Eosinophil % 2.9 %; Lymphocyte % 22.9 %; Mean Platelet Volume 9.3 fL (7.5-11.2); Nucleated Red Blood Cells % 0.2 %/100WBC (0.0-0.8); Platelet Count 95 10^3/uL (150-450)
[2024-05-30] MEDS: Magnesium Sulfate 2 gm BAG 2 GM/50 ML BAG IVPB ONE (09:04)
[2024-05-30 11:35] LABS: Total Bilirubin 0.6 mg/dL (0.2-1.0)
[2024-05-30] MEDS ORDERED: Sulfur Hexaflouride MICROSPHR 25 MG VIAL ONE (14:03)
[2024-05-30 19:29] LABS: High Sensitivity Troponin 1 Hr 77 pg/mL (<15)
[2024-05-31] MEDS: Labetalol IV 5 MG/ML 20 ml VIAL IV PUSH ONE (00:53)
[2024-05-31 06:37] LABS: Calcium 8.6 mg/dL (8.6-10.3); Creatinine, Serum 1.27 mg/dL (0.51-0.95); Magnesium 1.9 mg/dL (1.9-2.7); eGFR CKD-EPI 46.4 (>60)
[2024-05-31 07:34] LABS: ABS Basophils 0.1 10^3/uL (0.0-0.1); ABS Eosinophils 0.1 10^3/uL (0.0-0.5); ABS Lymphocytes 1.4 10^3/uL (1.0-4.8); ABS Monocytes 0.4 10^3/uL (0.0-0.9); ABS Neutrophils 4.4 10^3/uL (1.5-7.6); Eosinophil % 1.9 %; Hematocrit 40.3 % (35-45); Hemoglobin 13.5 g/dL (11.5-14.3); Mean Corpuscular Hemoglobin 30.7 pg (27-33); Mean Corpuscular Hgb Conc 33.5 g/dL (31-36); Mean Corpuscular Volume 91.7 fL (80-97); Mean Platelet Volume 9.5 fL (7.5-11.2); Nucleated Red Blood Cells % 0.1 %/100WBC (0.0-0.8); Platelet Count 100 10^3/uL (150-450); Red Blood Count 4.39 10^6/uL (3.63-4.92); Red Cell Distribution Width 13.7 % (12-17); White Blood Count 6.4 10^3/uL (3.8-11.8)
[2024-05-31] MEDS: Iodixanol (CONTRAST) 320 MG/ML 100 ML SDV IV ONE (13:26)
[2024-05-31 14:15] LABS: TSH Ultra Thyroid Stim Horm 1.07 mcIU/mL (0.34-5.60)
[2024-06-01 06:58] LABS: ABS Eosinophils 0.2 10^3/uL (0.0-0.5); ABS Lymphocytes 1.4 10^3/uL (1.0-4.8); ABS Monocytes 0.4 10^3/uL (0.0-0.9); ABS Neutrophils 4.6 10^3/uL (1.5-7.6); Eosinophil % 2.4 %; Hematocrit 41.1 % (35-45); Hemoglobin 14.1 g/dL (11.5-14.3); Lymphocyte % 21.6 %; Mean Corpuscular Hemoglobin 31.5 pg (27-33); Mean Corpuscular Hgb Conc 34.3 g/dL (31-36); Mean Corpuscular Volume 91.6 fL (80-97); Mean Platelet Volume 10.2 fL (7.5-11.2); Nucleated Red Blood Cells % 0.1 %/100WBC (0.0-0.8); Platelet Count 115 10^3/uL (150-450); Red Blood Count 4.48 10^6/uL (3.63-4.92); Red Cell Distribution Width 13.7 % (12-17); White Blood Count 6.6 10^3/uL (3.8-11.8)
[2024-06-01 07:14] LABS: Calcium 8.8 mg/dL (8.6-10.3); Creatinine, Serum 1.24 mg/dL (0.51-0.95); Magnesium 1.7 mg/dL (1.9-2.7); Potassium 4.3 mmol/L (3.5-5.0); eGFR CKD-EPI 47.7 (>60)
[2024-06-01] MEDS: Insulin GLARGINE 100 un/ml 10 ml VIAL SUBCUT ONE (11:04)
[2024-06-01] MEDS ORDERED: fentaNYL 100 mcg/2 ml 50 MCG/ML VIAL ONE (15:43)
[2024-06-01] MEDS ORDERED: Midazolam 10 mg/10 ml VIAL 1 mg/ml 10 ml VIAL (10 mg) ONE (15:43)
[2024-06-01] MEDS ORDERED: Dextrose 50% Syringe 50 ml 25 GM/50 ML SYRINGE IV PUSH PRN (21:05)
[2024-06-02 14:22] LABS: ABS Basophils 0.1 10^3/uL (0.0-0.1); ABS Eosinophils 0.2 10^3/uL (0.0-0.5); ABS Lymphocytes 1.4 10^3/uL (1.0-4.8); ABS Monocytes 0.4 10^3/uL (0.0-0.9); ABS Neutrophils 4.7 10^3/uL (1.5-7.6); Eosinophil % 2.8 %; Hematocrit 40.4 % (35-45); Hemoglobin 13.8 g/dL (11.5-14.3); Lymphocyte % 20.5 %; Mean Corpuscular Hemoglobin 31.7 pg (27-33); Mean Corpuscular Hgb Conc 34.1 g/dL (31-36); Mean Corpuscular Volume 92.9 fL (80-97); Mean Platelet Volume 10.3 fL (7.5-11.2); Nucleated Red Blood Cells % 0.1 %/100WBC (0.0-0.8); Platelet Count 115 10^3/uL (150-450); Red Blood Count 4.35 10^6/uL (3.63-4.92); Red Cell Distribution Width 14.2 % (12-17); White Blood Count 6.7 10^3/uL (3.8-11.8)
[2024-06-02 16:22] LABS: Anion Gap 7 mmol/L (2-16); Blood Urea Nitrogen 23 mg/dL (6-24); CO2 Carbon Dioxide 24 mmol/L (22-32); Calcium 8.8 mg/dL (8.6-10.3); Chloride 100 mmol/L (101-111); Creatinine, Serum 1.23 mg/dL (0.51-0.95); Glucose 435 mg/dL (70-100); Magnesium 1.5 mg/dL (1.9-2.7); Sodium 131 mmol/L (135-145); eGFR CKD-EPI 48.2 (>60)
[2024-06-02 17:01] LABS: Glucose Confirmatory 418 mg/dL (70-100)
[2024-06-03 07:09] LABS: ABS Basophils 0.1 10^3/uL (0.0-0.1); ABS Eosinophils 0.2 10^3/uL (0.0-0.5); ABS Lymphocytes 1.4 10^3/uL (1.0-4.8); ABS Monocytes 0.4 10^3/uL (0.0-0.9); ABS Neutrophils 4.4 10^3/uL (1.5-7.6); ABS Nucleated RBC 0.01 10^3/ul; Eosinophil % 3.5 %; Hematocrit 39.4 % (35-45); Hemoglobin 13.5 g/dL (11.5-14.3); Lymphocyte % 21.4 %; Mean Corpuscular Hemoglobin 31.2 pg (27-33); Mean Corpuscular Hgb Conc 34.4 g/dL (31-36); Mean Corpuscular Volume 90.8 fL (80-97); Mean Platelet Volume 9.5 fL (7.5-11.2); Nucleated Red Blood Cells % 0.1 %/100WBC (0.0-0.8); Platelet Count 112 10^3/uL (150-450); Red Blood Count 4.34 10^6/uL (3.63-4.92); White Blood Count 6.5 10^3/uL (3.8-11.8)
[2024-06-03 07:28] LABS: Calcium 8.6 mg/dL (8.6-10.3); Creatinine, Serum 1.19 mg/dL (0.51-0.95); Magnesium 1.5 mg/dL (1.9-2.7); Potassium 4.6 mmol/L (3.5-5.0); eGFR CKD-EPI 50.1 (>60)
[2024-06-03] MEDS: Magnesium Sulf 4 GM/100 ML IV 4,000 MG/100 ML BAG IVPB ONE (08:41)
[2024-06-03 13:16] VITALS: BP 151/66
== END 2024-06-03 14:23 | disposition home or self-care (01) | DRG 392 ==
LOC: EDHOLD 13:20 → ED 13:20 → SUATTDRO 19:37 → SSU 22:36 → SUATTDRO 05-30 11:52 → MEDTELE 06-02 02:10
PROVIDERS: ATTEND Student in an Organized Health Care Education/Training Program